=== PATIENT | male | born 1990 | race Caucasian/White ===

== ENCOUNTER 2016-10-08 17:26 | Inpatient (IN) | payer MEDICARE, MEDICAID ==
[2016-10-08] MEDS ORDERED: DIPH,PERTUS(ACELL)TETVAC-LF 0.5 ML VIAL IM ONE (17:29)
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
[2016-10-08 22:45] LABS: Appearance,Urine Clear (Clear); Bilirubin,Urine Negative (Negative); Glucose,Urine (UA) Negative (Negative); Ketones,Urine Negative (Negative); Leukocyte Esterase,Urine Negative (Negative); Nitrite,Urine Negative (Negative); Protein,Urine Negative (Negative); Specific Gravity,Urine 1.002 (1.001-1.035); UA Billing (MACRO vs. MICRO) CHEM; Urobilinogen,Urine <2.0 mg/dL (<2.0)
[2016-10-08] MEDS ORDERED: MIRTAZAPINE 15 MG TAB PO STA (22:54)
[2016-10-08] MEDS ORDERED: lamoTRIgine 100 MG TAB PO STA (22:54)
[2016-10-08] MEDS ORDERED: LACOSAMIDE 50 MG TABLET PO STA (22:55)
[2016-10-08] MEDS ORDERED: TEMAZEPAM 15 MG CAP PO STA (22:56)
[2016-10-08] MEDS ORDERED: BENZTROPINE MESYLATE 1 MG TAB PO STA (22:57)
[2016-10-08] MEDS ORDERED: clonazePAM 1 MG TAB PO STA (22:57)
[2016-10-08 22:58] LABS: Basophils % (A) 1 %; CH 31.3; Eosinophils # (A) 0.1 k/uL (0-0.7); Eosinophils % (A) 1 %; HCT 47.5 % (39.0-53.0); HDW 2.37; HGB 15.8 gm/dL (13.0-17.5); Luc # (Auto) 0.28; Luc % (Auto) 3; Lymphocytes # (A) 2.3 k/uL (1.0-4.8); Lymphocytes % (A) 27 %; MCH 30.7 pg (25.0-35.0); MCHC 33.2 g/dL (31.0-37.0); MCV 92.4 fL (80.0-100.0); Mean Platelet Volume 7.1; Monocytes # (A) 0.7 k/uL (0-1.0); Monocytes % (A) 8 %; Neutrophils # (A) 5.1 k/uL (1.3-7.7); Neutrophils % (A) 60 %; RBC 5.14 m/uL (4.30-5.90); RDW 13.9 % (11.5-15.5); WBC 8.6 k/uL (3.8-10.6); WBC (Perox) 8.19
[2016-10-08 23:12] LABS: ALT 41 U/L (21-72); AST 28 U/L (17-59); Alkaline Phosphatase 91 U/L (38-126); Anion Gap 11 mmol/L; Blood Urea Nitrogen 8 mg/dL (9-20); Carbon Dioxide 22 mmol/L (22-30); Chloride 111 mmol/L (98-107); Glucose 106 mg/dL (74-99); Non-African American GFR(MDRD) >60 (>60 ml/min/1.73 sqM); Potassium 4.1 mmol/L (3.5-5.1); Sodium 144 mmol/L (137-145); Total Bilirubin 0.3 mg/dL (0.2-1.3); Total Protein 6.8 g/dL (6.3-8.2)
[2016-10-09] MEDS ORDERED: TEMAZEPAM 15 MG CAP PO PRN (14:35)
[2016-10-09] MEDS ORDERED: PROPRANOLOL LA 80 MG CAP.SA.24H PO STA (14:35)
[2016-10-09] MEDS ORDERED: REXULTI 4 MG PO SCH (15:00)
[2016-10-09] MEDS ORDERED: clonazePAM 1 MG TAB PO SCH (16:00)
[2016-10-09] MEDS ORDERED: ETHOSUXIMIDE PO SCH (21:00)
[2016-10-09] MEDS ORDERED: lamoTRIgine 100 MG TAB PO SCH (21:00)
[2016-10-09] MEDS ORDERED: LACOSAMIDE 50 MG TABLET PO SCH ×2 (21:00→22:00)
[2016-10-09] MEDS ORDERED: BENZTROPINE MESYLATE 1 MG TAB PO SCH (21:00)
[2016-10-09] MEDS ORDERED: MIRTAZAPINE 15 MG TAB PO SCH (21:00)
[2016-10-09] MEDS ORDERED: ZIPRASIDONE 20 MG VIAL IM PRN (21:08)
[2016-10-09] MEDS ORDERED: MAGNESIUM HYDROXIDE 2,400 MG/10 ML CUP PO PRN (21:08)
[2016-10-09] MEDS ORDERED: MAG HYDROX/AL HYDROX/SIMETH 30 ML CUP PO PRN (21:08)
[2016-10-09] MEDS ORDERED: ACETAMINOPHEN TAB 325 MG TAB PO PRN (21:08)
[2016-10-09] MEDS ORDERED: IBUPROFEN 800 MG TAB PO PRN (21:19)
[2016-10-09] MEDS ORDERED: TEMAZEPAM 15 MG CAP PO SCH (22:00)
[2016-10-09] MEDS: BENZTROPINE MESYLATE 1 MG TAB PO SCH (22:02)
[2016-10-09] MEDS: ZARONTIN PO SCH (22:02)
[2016-10-09] MEDS: lamoTRIgine 100 MG TAB PO SCH (22:03)
[2016-10-09] MEDS: MIRTAZAPINE 15 MG TAB PO SCH (22:03)
[2016-10-09] MEDS: NICOTINE 14MG/24HR PATCH TRANSDERM SCH (22:05)
[2016-10-09 22:50] VITALS: BMI 23.1
[2016-10-10] MEDS: clonazePAM 1 MG TAB PO SCH ×3 (06:19→18:16)
[2016-10-10 08:27] LABS: Basophils # (A) 0.1 k/uL (0-0.2); Basophils % (A) 1 %; CHCM 33.5; Eosinophils # (A) 0.1 k/uL (0-0.7); Eosinophils % (A) 2 %; HGB 15.9 gm/dL (13.0-17.5); Luc # (Auto) 0.25; Luc % (Auto) 4; Lymphocytes # (A) 1.7 k/uL (1.0-4.8); Lymphocytes % (A) 25 %; MCH 30.3 pg (25.0-35.0); MCHC 32.5 g/dL (31.0-37.0); Mean Platelet Volume 7.2; Monocytes # (A) 0.6 k/uL (0-1.0); Monocytes % (A) 9 %; Neutrophils % (A) 59 %; RBC 5.26 m/uL (4.30-5.90); RDW 13.8 % (11.5-15.5); WBC 6.8 k/uL (3.8-10.6); WBC (Perox) 6.67
[2016-10-10] MEDS ORDERED: PROPRANOLOL LA 80 MG CAP.SA.24H PO SCH ×2 (09:00)
[2016-10-10 09:22] LABS: Anion Gap 10 mmol/L; Blood Urea Nitrogen 12 mg/dL (9-20); Calcium 9.7 mg/dL (8.4-10.2); Carbon Dioxide 23 mmol/L (22-30); Chloride 109 mmol/L (98-107); Glucose 96 mg/dL (74-99); Non-African American GFR(MDRD) >60 (>60 ml/min/1.73 sqM); Potassium 4.1 mmol/L (3.5-5.1); Sodium 142 mmol/L (137-145)
[2016-10-10] MEDS: lamoTRIgine 100 MG TAB PO SCH ×2 (09:22→21:25)
[2016-10-10] MEDS: VIMPAT 100 MG PO SCH ×2 (09:23→21:26)
[2016-10-10] MEDS: ZARONTIN PO SCH ×2 (09:23→21:27)
[2016-10-10] MEDS: Brexpiprazole [Rexulti] 4 MG PO SCH (09:25)
[2016-10-10] MEDS: BENZTROPINE MESYLATE 1 MG TAB PO SCH ×2 (09:25→21:25)
[2016-10-10] MEDS: NICOTINE 14MG/24HR PATCH TRANSDERM SCH (09:25)
[2016-10-10] MEDS ORDERED: REXULTI 4 MG PO SCH (10:00)
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
[2016-10-10] MEDS ORDERED: OLANZapine 10 MG TAB PO STA (17:53)
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
[2016-10-10] MEDS ORDERED: PROPRANOLOL 20 MG TAB PO SCH (21:00)
[2016-10-10] MEDS: MIRTAZAPINE 15 MG TAB PO SCH (21:25)
[2016-10-10] MEDS: OLANZapine 10 MG TAB PO SCH (21:26)
[2016-10-11] MEDS: clonazePAM 1 MG TAB PO SCH ×3 (06:30→17:10)
[2016-10-11] MEDS: ZARONTIN PO SCH ×2 (09:11→20:13)
[2016-10-11] MEDS: lamoTRIgine 100 MG TAB PO SCH ×2 (09:12→20:14)
[2016-10-11] MEDS: PROPRANOLOL 20 MG TAB PO SCH ×2 (09:12→20:14)
[2016-10-11] MEDS: VIMPAT 100 MG PO SCH ×2 (09:12→20:26)
[2016-10-11] MEDS: OLANZapine 10 MG TAB PO SCH ×2 (09:13→20:15)
[2016-10-11] MEDS: BENZTROPINE MESYLATE 1 MG TAB PO SCH ×2 (09:13→20:13)
[2016-10-11] MEDS: Brexpiprazole [Rexulti] 4 MG PO SCH (09:14)
[2016-10-11] MEDS: NICOTINE 14MG/24HR PATCH TRANSDERM SCH (09:15)
[2016-10-11] MEDS: MIRTAZAPINE 15 MG TAB PO SCH (20:26)
[2016-10-12] MEDS: clonazePAM 1 MG TAB PO SCH ×3 (06:24→17:29)
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
[2016-10-12] MEDS: OLANZapine 10 MG TAB PO SCH ×2 (09:48→20:48)
[2016-10-12] MEDS: BENZTROPINE MESYLATE 1 MG TAB PO SCH ×2 (09:48→20:47)
[2016-10-12] MEDS: lamoTRIgine 100 MG TAB PO SCH ×2 (09:48→20:47)
[2016-10-12] MEDS: ZARONTIN PO SCH ×2 (09:49→20:48)
[2016-10-12] MEDS: Brexpiprazole [Rexulti] 4 MG PO SCH (09:49)
[2016-10-12] MEDS: PROPRANOLOL 20 MG TAB PO SCH ×2 (09:50→20:48)
[2016-10-12] MEDS: VIMPAT 100 MG PO SCH ×2 (10:41→21:16)
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
[2016-10-12] MEDS: MIRTAZAPINE 15 MG TAB PO SCH (20:48)
[2016-10-13] MEDS: clonazePAM 1 MG TAB PO SCH ×3 (06:20→17:34)
[2016-10-13] MEDS: lamoTRIgine 100 MG TAB PO SCH ×2 (08:44→20:01)
[2016-10-13] MEDS: BENZTROPINE MESYLATE 1 MG TAB PO SCH ×2 (08:44→20:01)
[2016-10-13] MEDS: OLANZapine 10 MG TAB PO SCH ×2 (08:44→20:01)
[2016-10-13] MEDS: VIMPAT 100 MG PO SCH ×2 (08:44→20:02)
[2016-10-13] MEDS: PROPRANOLOL 20 MG TAB PO SCH (08:44)
[2016-10-13] MEDS: ZARONTIN PO SCH ×2 (08:45→20:02)
[2016-10-13] MEDS: Brexpiprazole [Rexulti] 4 MG PO SCH (08:45)
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
[2016-10-13] MEDS: MIRTAZAPINE 15 MG TAB PO SCH (20:01)
[2016-10-14] MEDS: clonazePAM 1 MG TAB PO SCH ×2 (06:09→11:36)
[2016-10-14 06:22] VITALS: TEMP 97.9
[2016-10-14] MEDS: ZARONTIN PO SCH (08:39)
[2016-10-14] MEDS: BENZTROPINE MESYLATE 1 MG TAB PO SCH (08:39)
[2016-10-14] MEDS: lamoTRIgine 100 MG TAB PO SCH (08:40)
[2016-10-14] MEDS: Brexpiprazole [Rexulti] 4 MG PO SCH (08:41)
[2016-10-14] MEDS: OLANZapine 10 MG TAB PO SCH (08:41)
[2016-10-14] MEDS: PROPRANOLOL 20 MG TAB PO SCH ×2 (08:42→08:47)
[2016-10-14] MEDS ORDERED: HALOPERIDOL DECANOATE 100 MG/ML 1 ML VIAL IM SCH (09:00)
[2016-10-14] MEDS: VIMPAT 100 MG PO SCH (10:01)
[2016-10-14 11:10] VITALS: BP 145/84; PULSE 96; RESP 16
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
[2016-10-19] MEDS ORDERED: HALOPERIDOL DECANOATE 100 MG/ML 1 ML VIAL IM SCH (12:00)
== END 2016-10-14 14:41 | DRG 885 ==
LOC: EC 17:26 → 3MHU 10-09 20:12
PROVIDERS: ADMIT Psychiatry & Neurology Psychiatry; ATTEND Psychiatry & Neurology Psychiatry
DX: F25.0 Schizoaffective disorder, bipolar type (principal); F70 Mild intellectual disabilities; R45.851 Suicidal ideations; F84.5 Asperger's syndrome; F17.200 Nicotine dependence, unspecified, uncomplicated; F63.81 Intermittent explosive disorder; F81.9 Developmental disorder of scholastic skills, unspecified; G40.909 Epilepsy, unspecified, not intractable, without status epilepticus; S61.512A Laceration without foreign body of left wrist, initial encounter; Z79.899 Other long term (current) drug therapy; X78.1XXA Intentional self-harm by knife, initial encounter
CPT/HCPCS: 12002; 36415; 80048; 80053; 80175; 80306; 81003; 82075; 84443; 85025; 90471; 99285

== ENCOUNTER → 2017-08-07 | Outpatient (CLI) | payer MEDICARE, OTHER ==
--- NOTE | 2017-08-07 10:41 | MR ---
EXAMINATION TYPE: MR brain wo con DATE OF EXAM: 08/07/2017 COMPARISON: MRI brain May 28, 2015 HISTORY: Seizures TECHNIQUE: Multiplanar, multisequence imaging of the brain and brainstem is performed without IV cont rast. FINDINGS: Diffusion weighted images demonstrate no evidence of a recent infarct or other diffusion abnormality. There is no extraaxial fluid collection or significant white matter signal abnormality. The ventricu lar system and cisternal spaces are normal in size and appearance. The brain volume is age appropria te. Midline structures demonstrate normal morphology. The craniocervical junction appears within normal limits. Normal vascular flow voids are present. The visualized sinuses are clear and the globes are i ntact. IMPRESSION: No significant new or acute finding is present to account for patient's symptoms.
== END ==
LOC: RADMRIMAIN 09:46
PROVIDERS: ATTEND Psychiatry & Neurology Neurology
DX: G40.409 Other generalized epilepsy and epileptic syndromes, not intractable, without status epilepticus (principal); Z88.8 Allergy status to other drugs, medicaments and biological substances
CPT/HCPCS: 70551

== ENCOUNTER 2017-10-09 18:52 | Inpatient (IN) | payer MEDICARE, MEDICAID ==
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
[2017-10-09 20:01] LABS: Amphetamine Screen,Urine Not Detected (NotDetected); Barbiturate Screen,Urine Detected (NotDetected); Benzodiazepines Screen,Urine Not Detected (NotDetected); Cocaine Screen,Urine Not Detected (NotDetected); Methadone Screen, Urine Not Detected (NotDetected); Opiate Screen,Urine Not Detected (NotDetected); Oxycodone Screen, Urine Not Detected (NotDetected); Phencyclidine Screen,Urine Not Detected (NotDetected); Tricyclic Antidepressant,Urine Detected (NotDetected); Urn Cannabinoid Scrn Not Detected (NotDetected)
[2017-10-09] MEDS ORDERED: MAGNESIUM HYDROXIDE 2,400 MG/10 ML CUP PO PRN (22:05)
[2017-10-09] MEDS ORDERED: MAG HYDROX/AL HYDROX/SIMETH 30 ML CUP PO PRN (22:05)
[2017-10-09] MEDS ORDERED: HALOPERIDOL LACTATE 5 MG/ML 1 ML VIAL IM PRN (22:17)
[2017-10-10] MEDS: OLANZapine 10 MG TAB PO SCH ×2 (09:17→20:03)
[2017-10-10] MEDS: LACOSAMIDE 50 MG TABLET PO SCH ×2 (09:17→20:13)
[2017-10-10] MEDS: cloNIDine HCL 0.1 MG TAB PO SCH ×2 (09:17→20:03)
[2017-10-10] MEDS: BENZTROPINE MESYLATE 1 MG TAB PO SCH (09:17)
[2017-10-10] MEDS: lamoTRIgine 100 MG TAB PO SCH ×2 (09:17→20:03)
[2017-10-10] MEDS: NICOTINE 14MG/24HR PATCH TRANSDERM SCH (09:23)
[2017-10-10 09:39] LABS: Basophils % (A) 1 %; Eosinophils % (A) 0 %; HCT 49.3 % (39.0-53.0); HGB 16.6 gm/dL (13.0-17.5); Lymphocytes # (A) 1.6 k/uL (1.0-4.8); Lymphocytes % (A) 26 %; MCH 30.5 pg (25.0-35.0); MCHC 33.8 g/dL (31.0-37.0); MCV 90.2 fL (80.0-100.0); Mean Platelet Volume 7.1; Monocytes # (A) 0.6 k/uL (0-1.0); Monocytes % (A) 9 %; Neutrophils # (A) 3.9 k/uL (1.3-7.7); Neutrophils % (A) 62 %; Platelet Count 249 k/uL (150-450); RBC 5.46 m/uL (4.30-5.90); RDW 13.5 % (11.5-15.5); WBC 6.2 k/uL (3.8-10.6)
[2017-10-10 09:41] LABS: ALT 28 U/L (21-72); AST 20 U/L (17-59); Albumin 4.5 g/dL (3.5-5.0); Alkaline Phosphatase 133 U/L (38-126); Anion Gap 10 mmol/L; Blood Urea Nitrogen 10 mg/dL (9-20); Calcium 10.2 mg/dL (8.4-10.2); Carbon Dioxide 25 mmol/L (22-30); Chloride 108 mmol/L (98-107); Cholesterol 182 mg/dL (<200); Glucose 140 mg/dL (74-99); HDL Cholesterol 40 mg/dL (40-60); LDL Cholesterol,Calculated 115 mg/dL (0-99); Potassium 4.5 mmol/L (3.5-5.1); Sodium 143 mmol/L (137-145); Total Bilirubin 0.4 mg/dL (0.2-1.3); Triglycerides 136 mg/dL (<150)
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
--- NOTE | 2017-10-10 14:37 | CONS ---
CONSULTATION DATE OF SERVICE: 10/10/2017 This 26-year-old gentleman admitted for psychiatric evaluation. is currently not willing to be examined. The patient appears to be agitated at this time. Please call us when the patient is more cooperative for an exam. RODDY / YAZANN: [id number] /
[2017-10-10 17:21] LABS: Hemoglobin A1C 5.4 % (4.0-6.0)
[2017-10-10] MEDS: MIRTAZAPINE 15 MG TAB PO SCH (20:03)
[2017-10-10] MEDS: IMIPRAMINE 25 MG TAB PO SCH (20:03)
[2017-10-10] MEDS ORDERED: ETHOSUXIMIDE 250 MG PO SCH (21:00)
[2017-10-10 21:47] LABS: T4, Free (Free Thyroxine) 1.35 ng/dL (0.78-2.19)
[2017-10-11] MEDS: lamoTRIgine 100 MG TAB PO SCH ×2 (10:44→20:18)
[2017-10-11] MEDS: BENZTROPINE MESYLATE 1 MG TAB PO SCH (10:44)
[2017-10-11] MEDS: NICOTINE 14MG/24HR PATCH TRANSDERM SCH (10:44)
[2017-10-11] MEDS: LACOSAMIDE 50 MG TABLET PO SCH ×2 (10:44→20:18)
[2017-10-11] MEDS: cloNIDine HCL 0.1 MG TAB PO SCH ×2 (10:44→20:18)
[2017-10-11] MEDS: OLANZapine 10 MG TAB PO SCH (10:44)
--- NOTE | 2017-10-11 11:05 | P.PN ---
Progress Note - Text Interval history: The patient is found in his room. He reluctantly follows me to an interview room. He states he's not doing good today. He is concerned that he is going to go to shelter for destruction of property and his this would be a violation of his mental health court agreement. I was able to reach his outpatient psychiatrist Dr. Coppola. We discussed the presenting circumstances and medication management options. It appears he has not been tried on claws role in the past and we agreed that we would trial that in place of Zyprexa. It seems that events like this are often triggered by phone calls with siblings. Reportedly those conversations don't go well and often are confrontational. The patient has had a baseline CBC with differential the white blood count and absolute neutrophil number are in the acceptable range to initiate Clozaril. Mental status exam: The patient is alert he is partially cooperative. He provides brief responses to some questions and then does not answer others. He did terminate the session early out of frustration. He indicated that he misses his mother and he became acutely tearful. He reports a depressed mood. He did not tolerate questions regarding suicidal or homicidal ideation. He was mildly agitated in leaving the room. Insight and judgment are impaired. There is a history of chronic intellectual disability. He is dressed in the same clothing is yesterday and has a disheveled appearance. Eye contact was poor. He had no spontaneous speech. Plan: The patient seems to be struggling with aggressive responses to stressors. Reportedly his last outburst was approximately 3 months ago. I conferred with his outpatient psychiatrist and we agreed to try utilizing Clozaril in place of Zyprexa as it may be more effective for reducing aggressive impulses. We will initiated slowly 25 mg at bedtime Zyprexa will be reduced. We will monitor him for safety and encourage his participation in the milieu. Reality orientation will be provided when possible.
[2017-10-11] MEDS: ETHOSUXIMIDE PO SCH (20:17)
[2017-10-11] MEDS: MIRTAZAPINE 15 MG TAB PO SCH (20:18)
[2017-10-11] MEDS: IMIPRAMINE 25 MG TAB PO SCH (20:18)
[2017-10-11] MEDS: OLANZapine 5 MG TAB PO SCH (20:18)
[2017-10-11] MEDS: cloZAPine 25 MG TAB PO SCH (20:18)
--- NOTE | 2017-10-12 08:45 | P.PN ---
Progress Note - Text Interval history: The patient is found in his room he follows me to an interview room. He indicates his mood is better. He does still have some concern that his actions may cause him to go to correction but is awaiting input from mental health Court. He states that he did eat breakfast this morning he attended 2 groups yesterday per his report. We discussed the medication changes that we are making he has no questions or concerns. He has been in contact with his mother via phone and he finds those interactions supportive. Mental status exam: The patient is alert he has a disheveled appearance he's been wearing the same clothing throughout the hospitalization. Eye contact is improved. He reports his mood is better today. He states he feels safe here in the hospital. Affect is brighter than yesterday. He demonstrates some appropriate smiling with use of humor. He is endorsing no acute suicidal or homicidal ideation but does indicate that the courts decision would impact his mood. He is endorsing no paranoid or persecutory thoughts currently. Thought process for the most part is linear he demonstrates no tangential thinking loose associations or flight of ideas. Insight and judgment chronically limited he does have a chronic intellectual disability. Chronic impediment speech. Plan: The patient will continue on his current medications we will discontinue the Zyprexa soon. We will consider titrating the claws role further as well. Vital signs reviewed. He is encouraged to fully participate in the milieu. We will continue monitoring him for safety.
[2017-10-12] MEDS: lamoTRIgine 100 MG TAB PO SCH ×2 (09:09→20:29)
[2017-10-12] MEDS: OLANZapine 5 MG TAB PO SCH ×2 (09:09→20:29)
[2017-10-12] MEDS: BENZTROPINE MESYLATE 1 MG TAB PO SCH (09:09)
[2017-10-12] MEDS: LACOSAMIDE 50 MG TABLET PO SCH ×2 (09:09→20:29)
[2017-10-12] MEDS: ETHOSUXIMIDE PO SCH ×2 (09:09→20:33)
[2017-10-12] MEDS: cloNIDine HCL 0.1 MG TAB PO SCH ×2 (09:09→20:28)
[2017-10-12] MEDS: NICOTINE 14MG/24HR PATCH TRANSDERM SCH (09:10)
[2017-10-12 13:12] LABS: Appearance,Urine Clear (Clear); Bilirubin,Urine Negative (Negative); Blood,Urine Negative (Negative); Color,Urine Light Yellow; Glucose,Urine (UA) Negative (Negative); Ketones,Urine Negative (Negative); Leukocyte Esterase,Urine Negative (Negative); Nitrite,Urine Negative (Negative); PH, Urine 7.5 (5.0-8.0); Protein,Urine Negative (Negative); Specific Gravity,Urine 1.007 (1.001-1.035); Urobilinogen,Urine <2.0 mg/dL (<2.0)
[2017-10-12] MEDS: cloZAPine 25 MG TAB PO SCH (20:28)
[2017-10-12] MEDS: MIRTAZAPINE 15 MG TAB PO SCH (20:29)
[2017-10-12] MEDS: IMIPRAMINE 25 MG TAB PO SCH (20:29)
--- NOTE | 2017-10-13 09:20 | P.PN ---
Progress Note - Text Interval history: The patient is found in his room he follows me to an interview room. He reports being upset with his mother sister and other family members. He states his sister and mother have been lying about what he said prior to this admission. We attempted to discuss strategies he could've employed rather than acting out violently. He has been attending some groups selectively. Appetite stable. He is sleeping at night. He has been compliant with medication. Mental status exam: The patient is alert he has a disheveled appearance he is wearing different clothing than yesterday. Eye contact is poor. He hasn't irritable and frustrated affect. He is reporting no suicidal or homicidal ideation. He is endorsing no auditory or visual hallucinations. He does have ongoing intellectual disability. His insight into his violent acts is impaired. He does not make much effort during our discussion to think of alternatives to violence when he is upset. He demonstrates no abnormal involuntary movements. He demonstrates no verbal or physical aggressiveness directed at me. Today he is employing all or none thinking as he states he doesn't want anything to do with his brother sister or mother. Historically he considers his mother his primary support. Plan: The patient will continue on his current medication we will titrate the Clozaril to 50 mg at bedtime we will discontinue the Zyprexa. Continue other psychotropic medications as written. We will continue to monitor him for safety and encourage his participation in the milieu. He does have mental health court scheduled for Monday he reports we may be of the discharge and prior to that date. Vital signs reviewed.
[2017-10-13] MEDS: ETHOSUXIMIDE PO SCH ×2 (09:28→20:17)
[2017-10-13] MEDS: LACOSAMIDE 50 MG TABLET PO SCH ×2 (09:29→20:17)
[2017-10-13] MEDS: cloNIDine HCL 0.1 MG TAB PO SCH ×2 (09:29→20:18)
[2017-10-13] MEDS: BENZTROPINE MESYLATE 1 MG TAB PO SCH (09:30)
[2017-10-13] MEDS: lamoTRIgine 100 MG TAB PO SCH ×2 (09:30→20:18)
[2017-10-13] MEDS: OLANZapine 5 MG TAB PO SCH (09:43)
[2017-10-13] MEDS: ACETAMINOPHEN TAB 325 MG TAB PO PRN (17:28)
--- NOTE | 2017-10-13 18:08 | XR ---
EXAMINATION TYPE: XR chest 1V portable DATE OF EXAM: 10/13/2017 COMPARISON: 10/23/2015 HISTORY: Short of breath TECHNIQUE: Single frontal view of the chest is obtained. FINDINGS: Heart and mediastinum are normal. Lungs are clear. Diaphragm is normal. Bony thorax appear s normal. IMPRESSION: Normal chest. No change.
[2017-10-13] MEDS: IMIPRAMINE 25 MG TAB PO SCH (20:17)
[2017-10-13] MEDS: MIRTAZAPINE 15 MG TAB PO SCH (20:17)
[2017-10-13] MEDS: cloZAPine 25 MG TAB PO SCH (20:18)
--- NOTE | 2017-10-14 08:17 | P.CRDCN ---
History of Present Illness Consult date: 10/14/17 Chief complaint: Chest pain History of present illness: This is a pleasant 26-year-old gentleman who was admitted to the psych unit with suicidal ideation and schizoaffective disorder. We get involved in the care of the patient because of chest discomfort. The patient yesterday was experiencing chest discomfort, in the mid of the chest, as a sharp kind of discomfort, without any radiation to the arm or neck or shoulders and without any associated symptoms. He states that the chest discomfort was worse once he took a deep breath. Currently the patient is pain- free. The cardiac enzymes were checked and came in to be unremarkable. The EKG showed sinus rhythm without any significant ST or T-wave abnormalities. The patient stated that he does have hypertension. He does have a family history of heart disease with his father with does have a pacemaker. He is also a smoker. Past Medical History Past Medical History: Neurologic Disorder, Seizure Disorder Additional Past Medical History / Comment(s): Developemental Disability, asperbergers,delayed speech,severe emotional impairment,explosive anger disorder.schizoaffective disorder History of Any Multi-Drug Resistant Organisms: None Reported Past Surgical History: No Surgical Hx Reported Past Anesthesia/Blood Transfusion Reactions: No Reported Reaction Past Psychological History: Schizoaffective Disorder, Schizophrenia Smoking Status: Current every day smoker Past Alcohol Use History: None Reported Past Drug Use History: None Reported Medications and Allergies Home Medications Medication Instructions Recorded Confirmed Type Haloperidol Decanoate [Haldol D] 250 mg IM Q28D #1 vial 03/16/17 10/09/17 Rx Lacosamide [Vimpat] 100 mg PO BID #60 tablet 03/16/17 10/09/17 Rx Mirtazapine [Remeron] 60 mg PO HS #60 tablet 03/16/17 10/09/17 Rx OLANZapine [ZyPREXA] 10 mg PO BID #60 tab 03/16/17 10/09/17 Rx lamoTRIgine [LaMICtal] 300 mg PO BID #120 tablet 03/16/17 10/09/17 Rx Benztropine Mesylate [Cogentin] 1 mg PO DAILY 10/09/17 10/09/17 History Ethosuximide [Zarontin] 750 mg PO BID 10/09/17 10/11/17 History Ibuprofen [Motrin] 800 mg PO TID PRN 10/09/17 10/09/17 History Imipramine HCl 50 mg PO HS 10/09/17 10/09/17 History Loratadine 10 mg PO DAILY 10/09/17 10/09/17 History Propranolol HCl 80 mg PO BID 10/09/17 10/09/17 History cloNIDine HCL [Catapres] 0.1 mg PO BID 10/09/17 10/09/17 History Allergies Allergy/AdvReac Type Severity Reaction Status Date / Time divalproex sodium Allergy Severe Unknown Verified 10/09/17 19:10 [From Depakote] chocolate flavor AdvReac Rash/Hives Verified 10/09/17 19:10 Physical Exam Vitals: Vital Signs Temp Pulse Resp BP BP Pulse Ox 10/14/17 07:02 98.0 F 73 14 114/57 10/13/17 20:30 131/89 10/13/17 16:06 76 16 118/55 98 10/13/17 09:33 140 H 18 109/67 - Constitutional General appearance: no acute distress - Respiratory Respiratory: bilateral: CTA - Cardiovascular Rhythm: regular Heart sounds: normal: S1, S2 Results 10/10/17 09:04 10/10/17 09:04 Cardiac Enzymes 10/13/17 10/14/17 Range/Units 18:12 00:09 Troponin I <0.012 <0.012 (0.000-0.034) ng/mL Current Medications Generic Name Dose Route Start Last Admin Trade Name Freq PRN Reason Stop Dose Admin Acetaminophen 650 mg 10/09/17 22:05 10/13/17 17:28 Tylenol Tab PO 650 mg Q4HR PRN Administration Pain/Discomfort Al Hydroxide/Mg Hydroxide 30 ml 10/09/17 22:05 Maalox PO Q4HR PRN GI Upset Benztropine Mesylate 1 mg 10/10/17 09:00 10/13/17 09:30 Cogentin PO 1 mg DAILY SHIMA Administration Clonidine 0.1 mg 10/10/17 09:00 10/13/17 20:18 Catapres PO 0.1 mg BID SHIMA Administration Clozapine 50 mg 10/13/17 21:00 10/13/17 20:18 Clozaril PO 10/18/17 21:01 50 mg HS SHIMA Administration Haloperidol Lactate 5 mg 10/09/17 22:17 Haldol IM BID PRN Agitation or Acute Psychosis Imipramine HCl 50 mg 10/10/17 21:00 10/13/17 20:17 Tofranil PO 50 mg HS SHIMA Administration Lacosamide 100 mg 10/10/17 09:00 10/13/17 20:17 Vimpat PO 100 mg BID SHIMA Administration Lamotrigine 300 mg 10/10/17 09:00 10/13/17 20:18 Lamictal PO 300 mg BID SHIMA Administration Magnesium Hydroxide 2,400 mg 10/09/17 22:05 Milk Of Magnesia PO DAILY PRN Constipation Mirtazapine 60 mg 10/10/17 21:00 10/13/17 20:17 Remeron PO 60 mg HS SHIMA Administration Non-Formulary Medication 750 mg 10/11/17 21:00 10/13/17 20:17 Ethosuximide [Zarontin] PO 750 mg BID SHIMA Administration 10/10/17 09:04 10/10/17 09:04 Assessment and Plan Assessment: Assessment #1 atypical/pleuritic chest discomfort Plan #1 acute coronary syndrome was ruled out #2 I will obtain an echocardiogram was Doppler #3 d-dimer to rule out a PE Thank you for allowing us participate in his care
[2017-10-14] MEDS: BENZTROPINE MESYLATE 1 MG TAB PO SCH (08:37)
[2017-10-14] MEDS: LACOSAMIDE 50 MG TABLET PO SCH ×2 (08:37→20:03)
[2017-10-14] MEDS: ETHOSUXIMIDE PO SCH ×2 (08:38→20:02)
[2017-10-14] MEDS: lamoTRIgine 100 MG TAB PO SCH ×2 (08:38→20:03)
[2017-10-14] MEDS: cloNIDine HCL 0.1 MG TAB PO SCH ×2 (08:38→20:03)
--- NOTE | 2017-10-14 13:27 | ECHOF ---
Referral Reason: MEASUREMENTS -------- HEIGHT: 185.4 cm WEIGHT: 87.1 kg BP: IVSd: 1.1 cm (0.6 - 1.1) LVIDd: 4.5 cm (3.9 - 5.3) LVPWd: 1.3 cm (0.6 - 1.1) IVSs: 1.1 cm LVIDs: 2.9 cm LVPWs: 1.7 cm Ao Diam: 3.1 cm (2.0 - 3.7) AV Cusp: 2.1 cm (1.5 - 2.6) LA Diam: 3.8 cm (2.7 - 3.8) MV EXCURSION: 25.916 mm (> 18.000) MV EF SLOPE: 178 mm/s (70 - 150) EPSS: 0.4 cm MV E Michi: 0.93 m/s MV DecT: 151 ms MV A Michi: 0.50 m/s MV E/A Ratio: 1.88 RAP: 5.00 mmHg RVSP: 14.63 mmHg FINDINGS -------- Sinus rhythm. This was a technically good study. The left ventricular size is normal. Left ventricular wall thickness is normal. Overall left vent ricular systolic function is normal with, an EF between 55 - 60 %. The right ventricle is normal in size. The left atrium is normal in size. The right atrium is normal in size. The aortic valve is trileaflet, and appears structurally normal. No aortic stenosis or regurgitation. The mitral valve leaflets are mildly thickened. Mild mitral annular calcification present. There is trace mitral regurgitation. Trace tricuspid regurgitation present. The right ventricular systolic pressure, as measured by Dopp ler, is 14.63mmHg. Pulmonic valve appears structurally normal. The aortic root, ascending aorta and aortic arch are normal. The pericardium is normal. CONCLUSIONS -------- 1. Sinus rhythm. 2. This was a technically good study. 3. The left ventricular size is normal. 4. Left ventricular wall thickness is normal. 5. Overall left ventricular systolic function is normal with, an EF between 55 - 60 %. 6. The right ventricle is normal in size. 7. The left atrium is normal in size. 8. The right atrium is normal in size. 9. The aortic valve is trileaflet, and appears structurally normal. No aortic stenosis or regurgitati on. 10. The mitral valve leaflets are mildly thickened. 11. Mild mitral annular calcification present. 12. There is trace mitral regurgitation. 13. Trace tricuspid regurgitation present. 14. The right ventricular systolic pressure, as measured by Doppler, is 14.63mmHg. 15. Pulmonic valve appears structurally normal. 16. The aortic root, ascending aorta and aortic arch are normal. 17. The pericardium is normal. POLISHING WHEEL REPAIRER: Zoila Kay RDCS
--- NOTE | 2017-10-14 15:02 | P.PN ---
Progress Note - Text Progress Note Date: 10/14/17 Patient reports missing some of his groups due to feeling drowsy with his medications . He staets his current medications are working well for him. He reports he is no longer irritable. He says he is able to stay calmer. He claims he is not a violent person. He reports to have broken a window due to a mistake that happened at home. He reports he is able to ignore his visual hallucinations. He reports history of seeing phantom and talked a lot about seeing a little girl, dressed in old fashioned clothes from 1800s. He says he avoids seeing scary/ghost movies as it triggers his schizophrenia. He reports his mother wanted him to tell the treatment team that he sees things due to his schizophrenia and he knows that they are not real. He reports good sleep and appetite. He denies current symptoms of depression or vashti. 26 year old male. He is dressed casually. His hair is unkempt, other rose appears in fair hygiene. He maintains good eye contact. No abnormal movements noted. His mood is reported as happy and affect is appropriate. His speech is normal tone, increased in rate and volume. His thought process is persevarative and talked about him seeing a phantom/ ghost like things. He denies current auditory hallucinations. He denies paranoia. He is alert and oriented 4. He denies current suicidal or homicidal ideations. His insight and judgement are improving. Continue his current medications Monitor for symptoms
[2017-10-14] MEDS: IMIPRAMINE 25 MG TAB PO SCH (20:03)
[2017-10-14] MEDS: cloZAPine 25 MG TAB PO SCH (20:03)
[2017-10-14] MEDS: MIRTAZAPINE 15 MG TAB PO SCH (20:03)
[2017-10-15] MEDS: BENZTROPINE MESYLATE 1 MG TAB PO SCH (09:18)
[2017-10-15] MEDS: cloNIDine HCL 0.1 MG TAB PO SCH ×2 (09:18→20:43)
[2017-10-15] MEDS: LACOSAMIDE 50 MG TABLET PO SCH ×2 (09:19→20:43)
[2017-10-15] MEDS: ETHOSUXIMIDE PO SCH ×2 (09:19→20:44)
[2017-10-15] MEDS: lamoTRIgine 100 MG TAB PO SCH ×2 (09:20→20:43)
[2017-10-15] MEDS: ACETAMINOPHEN TAB 325 MG TAB PO PRN (16:09)
--- NOTE | 2017-10-15 16:17 | P.PN ---
Progress Note - Text Progress Note Date: 10/15/17 Patient was seen today. He reports being complaint with his medications. No side effects reported. Reports going to most of the groups. He reports good sleep and appetite. Denies symptoms of depression. Denies anger or agitation. 26 year old male, appears in fair hygiene. He maintains good eye contact. No abnormal movements noted. His mood is reported as good and affect is appropriate. His speech is normal rate tone, and volume. He denies current auditory hallucinations. He denies paranoia. He is alert and oriented 4. He denies current suicidal or homicidal ideations. His insight and judgment are improving. Continue his current medications Monitor for symptoms
[2017-10-15] MEDS: cloZAPine 25 MG TAB PO SCH (20:42)
[2017-10-15] MEDS: IMIPRAMINE 25 MG TAB PO SCH (20:43)
[2017-10-15] MEDS: MIRTAZAPINE 15 MG TAB PO SCH (20:43)
[2017-10-15 22:01] VITALS: BMI 23.9
[2017-10-16 06:48] VITALS: RESP 16; TEMP 97.5
[2017-10-16 08:17] VITALS: BP 110/66; PULSE 124
[2017-10-16] MEDS: BENZTROPINE MESYLATE 1 MG TAB PO SCH (08:17)
[2017-10-16] MEDS: LACOSAMIDE 50 MG TABLET PO SCH (08:17)
[2017-10-16] MEDS: lamoTRIgine 100 MG TAB PO SCH (08:17)
[2017-10-16] MEDS: cloNIDine HCL 0.1 MG TAB PO SCH (08:17)
[2017-10-16] MEDS: ETHOSUXIMIDE PO SCH (08:17)
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
[2017-10-16 10:17] LABS: Basophils % (A) 1 %; Eosinophils % (A) 0 %; HCT 47.8 % (39.0-53.0); HGB 16.1 gm/dL (13.0-17.5); Lymphocytes # (A) 1.4 k/uL (1.0-4.8); Lymphocytes % (A) 25 %; MCHC 33.7 g/dL (31.0-37.0); MCV 92.2 fL (80.0-100.0); Mean Platelet Volume 6.6; Monocytes # (A) 0.5 k/uL (0-1.0); Monocytes % (A) 9 %; Neutrophils # (A) 3.5 k/uL (1.3-7.7); Neutrophils % (A) 62 %; Platelet Count 202 k/uL (150-450); RBC 5.18 m/uL (4.30-5.90); RDW 13.6 % (11.5-15.5); WBC 5.7 k/uL (3.8-10.6)
== END 2017-10-16 12:09 | disposition home or self-care (01) | DRG 885 ==
LOC: EC 18:52 → 3MHU 20:28
PROVIDERS: ADMIT Psychiatry & Neurology Psychiatry; ATTEND Psychiatry & Neurology Psychiatry
DX: F25.0 Schizoaffective disorder, bipolar type (principal); G40.802 Other epilepsy, not intractable, without status epilepticus; R45.851 Suicidal ideations; F32.9 Major depressive disorder, single episode, unspecified; F84.5 Asperger's syndrome; F63.81 Intermittent explosive disorder; I10 Essential (primary) hypertension; F17.200 Nicotine dependence, unspecified, uncomplicated; R47.9 Unspecified speech disturbances; R07.81 Pleurodynia; Z88.8 Allergy status to other drugs, medicaments and biological substances; Z91.02 Food additives allergy status; Z82.49 Family history of ischemic heart disease and other diseases of the circulatory system; Z79.899 Other long term (current) drug therapy
CPT/HCPCS: 71045; 80053; 80061; 80306; 81003; 82075; 83036; 84439; 84443; 84481; 84484; 85025; 85379; 93005; 93306; 99285

== ENCOUNTER 2017-10-28 14:55 | Emergency (ER) | payer MEDICARE, MEDICAID ==
[2017-10-28 15:05] VITALS: RESP 18
[2017-10-28] MEDS ORDERED: SODIUM CHLORIDE 0.9% 1,000 ML IV STA ×2 (15:10)
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
[2017-10-28 15:38] LABS: Basophils % (A) 0 %; Eosinophils # (A) 0.2 k/uL (0-0.7); Eosinophils % (A) 3 %; HCT 44.9 % (39.0-53.0); HGB 15.7 gm/dL (13.0-17.5); Lymphocytes # (A) 1.5 k/uL (1.0-4.8); Lymphocytes % (A) 17 %; MCH 31.5 pg (25.0-35.0); MCHC 34.9 g/dL (31.0-37.0); MCV 90.3 fL (80.0-100.0); Mean Platelet Volume 7.4; Monocytes % (A) 12 %; Neutrophils # (A) 5.8 k/uL (1.3-7.7); Neutrophils % (A) 66 %; Platelet Count 200 k/uL (150-450); RBC 4.98 m/uL (4.30-5.90); RDW 13.5 % (11.5-15.5); WBC 8.7 k/uL (3.8-10.6)
[2017-10-28 15:54] LABS: ALT 30 U/L (21-72); AST 20 U/L (17-59); Alkaline Phosphatase 102 U/L (38-126); Anion Gap 8 mmol/L; Blood Urea Nitrogen 11 mg/dL (9-20); Calcium 9.3 mg/dL (8.4-10.2); Carbon Dioxide 23 mmol/L (22-30); Chloride 107 mmol/L (98-107); Glucose 123 mg/dL (74-99); Magnesium 1.8 mg/dL (1.6-2.3); Potassium 3.9 mmol/L (3.5-5.1); Sodium 138 mmol/L (137-145); Total Bilirubin 0.4 mg/dL (0.2-1.3); Total Protein 6.4 g/dL (6.3-8.2)
[2017-10-28 16:02] LABS: Creatine Kinase MB 0.6 ng/mL (0.0-2.4)
[2017-10-28 16:34] VITALS: BP 112/70; PULSE 89; TEMP 97.9
== END 2017-10-28 16:52 | disposition home or self-care (01) ==
LOC: EC 14:55
DX: G40.909 Epilepsy, unspecified, not intractable, without status epilepticus (principal); F20.9 Schizophrenia, unspecified; F17.200 Nicotine dependence, unspecified, uncomplicated; Z79.899 Other long term (current) drug therapy; Z88.8 Allergy status to other drugs, medicaments and biological substances; Z91.018 Allergy to other foods
CPT/HCPCS: 36415; 80053; 82550; 82553; 83735; 85025; 96360; 99284

== ENCOUNTER 2017-11-14 19:49 | Emergency (ER) | payer MEDICARE, OTHER ==
[2017-11-14 20:01] VITALS: RESP 18
[2017-11-14 20:52] LABS: Basophils # (A) 0.1 k/uL (0-0.2); Basophils % (A) 1 %; Eosinophils # (A) 0.7 k/uL (0-0.7); Eosinophils % (A) 8 %; HCT 41.1 % (39.0-53.0); HGB 13.7 gm/dL (13.0-17.5); Lymphocytes # (A) 1.9 k/uL (1.0-4.8); Lymphocytes % (A) 24 %; MCH 30.5 pg (25.0-35.0); MCHC 33.4 g/dL (31.0-37.0); MCV 91.3 fL (80.0-100.0); Mean Platelet Volume 7.1; Monocytes # (A) 0.6 k/uL (0-1.0); Monocytes % (A) 8 %; Neutrophils # (A) 4.3 k/uL (1.3-7.7); Neutrophils % (A) 55 %; Platelet Count 210 k/uL (150-450); RDW 13.4 % (11.5-15.5); WBC 7.8 k/uL (3.8-10.6)
[2017-11-14 21:02] LABS: ALT 28 U/L (21-72); AST 19 U/L (17-59); Albumin 3.5 g/dL (3.5-5.0); Alkaline Phosphatase 89 U/L (38-126); Anion Gap 4 mmol/L; Blood Urea Nitrogen 10 mg/dL (9-20); Calcium 8.9 mg/dL (8.4-10.2); Carbon Dioxide 26 mmol/L (22-30); Chloride 109 mmol/L (98-107); Glucose 111 mg/dL (74-99); Magnesium 1.9 mg/dL (1.6-2.3); Potassium 3.8 mmol/L (3.5-5.1); Sodium 139 mmol/L (137-145); Total Bilirubin 0.2 mg/dL (0.2-1.3); Total Protein 5.6 g/dL (6.3-8.2)
--- NOTE | 2017-11-14 21:38 | CT ---
EXAMINATION TYPE: CT brain cspine wo con DATE OF EXAM: 11/14/2017 COMPARISON: 10/23/2015 and 07/28/2013. HISTORY: Possible seizure. CT DLP: 1667 mGycm. Automated Exposure Control for Dose Reduction was Utilized. TECHNIQUE: CT scan of the head and cervical spine are performed without contrast. FINDINGS: There is no acute intracranial hemorrhage, mass effect, or midline shift identified. No suspicious extra-axial fluid collection. The ventricles and sulci are within normal limits in size. The globes are intact. Scant mucosal thickening is present within the left maxillary and ethmoid sinu ses. Remaining paranasal sinuses and mastoid air cells are well aerated. Cervical spine is visualized in its entirety from C1 through upper thoracic levels and demonstrates s atisfactory alignment without evidence of acute fracture or dislocation. Prevertebral soft tissue ap pears within normal limits. The C1-C2 articulation is unremarkable. There is minimal biapical pleur al parenchymal scarring, advanced for the patient's age. There is slight vertebral body height loss o f C6 in relation to C5 although there is no anterior wedging identified additionally there is no sign ificant prevertebral soft tissue swelling at this level therefore this is age indeterminate mild frac ture deformity of the superior endplate. Small anterior osteophyte is seen of the inferior endplate a t this level and small osteophyte is seen of the superior endplate anteriorly of C5. Additionally the re is straightening of usual cervical lordosis which can be seen in muscular sprain or spasm or relat ed to patient positioning. IMPRESSION: 1. Superior endplate vertebral body height loss without wedge deformity of the C6 vertebral body, pro gressed from the prior exam of 2013. Therefore correlation with point tenderness is recommended to ex clude acute on chronic process. MR could be performed to evaluate for bone marrow edema. No preverteb ral soft tissue swelling at this level. 2. No acute intracranial process.
[2017-11-14 22:58] VITALS: BP 118/83; PULSE 79; TEMP 98.5
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
[2017-11-16 12:23] LABS: Lamotrigine (Lamictal) 9.1 ug/mL (2.0-15.0)
== END 2017-11-14 23:53 | disposition home or self-care (01) ==
LOC: EC 19:49
DX: S06.0X0A Concussion without loss of consciousness, initial encounter (principal); R55 Syncope and collapse; F20.9 Schizophrenia, unspecified; F17.200 Nicotine dependence, unspecified, uncomplicated; Z79.899 Other long term (current) drug therapy; Z88.8 Allergy status to other drugs, medicaments and biological substances; Z91.018 Allergy to other foods; W18.00XA Striking against unspecified object with subsequent fall, initial encounter; Y92.89 Other specified places as the place of occurrence of the external cause
CPT/HCPCS: 36415; 70450; 72125; 80053; 80168; 80175; 83735; 84484; 85025; 93005; 99285

== ENCOUNTER 2018-09-12 10:54 | Emergency (ER) | payer MEDICARE, OTHER ==
[2018-09-12 11:07] VITALS: BP 126/76; PULSE 91; RESP 18; TEMP 97.5
--- NOTE | 2018-09-12 12:30 | ED ---
Wound/Laceration HPI - General Chief Complaint: Wound/Laceration Stated Complaint: Fall, head pain Time Seen by Provider: 09/12/18 12:13 Source: patient, family, RN notes reviewed, old records reviewed Mode of arrival: ambulatory Limitations: physical limitation - History of Present Illness Initial Comments: Patient is a 27 year old male, slipped and fell into the shower hitting head. Patient has abrasion over scalp, no LOC. Patient was sent from his day program due to noticing bleeding. Patient did not notice bleeding directly after it happened. - Related Data Home Medications Medication Instructions Recorded Confirmed Ethosuximide [Zarontin] 750 mg PO BID 10/09/17 07/14/18 Propranolol HCl 80 mg PO BID 10/09/17 07/14/18 SUMAtriptan SUCCINATE [Imitrex] 50 mg PO DAILY PRN 07/14/18 07/14/18 cloNIDine HCL [Catapres] 0.1 mg PO HS 07/14/18 07/14/18 cloZAPine [Clozaril] 50 mg PO HS 07/14/18 07/14/18 cloZAPine [Clozaril] 100 mg PO BID 07/14/18 07/14/18 Previous Rx's Medication Instructions Recorded Lacosamide [Vimpat] 100 mg PO BID #60 tablet 03/16/17 lamoTRIgine [LaMICtal] 300 mg PO BID #120 tablet 03/16/17 Haloperidol Decanoate [Haldol D] 250 mg IM Q28D #1 vial 10/16/17 Imipramine HCl 50 mg PO HS #30 tablet 10/16/17 Mirtazapine [Remeron] 60 mg PO HS #60 tablet 10/16/17 Allergies Allergy/AdvReac Type Severity Reaction Status Date / Time divalproex sodium Allergy Severe Unknown Verified 09/12/18 11:07 [From Depakote] chocolate flavor AdvReac Rash/Hives Verified 09/12/18 11:07 Review of Systems ROS Statement: Those systems with pertinent positive or pertinent negative responses have been documented in the HPI. ROS Other: All systems not noted in ROS Statement are negative. Past Medical History Past Medical History: Neurologic Disorder, Seizure Disorder Additional Past Medical History / Comment(s): Developemental Disability, asperbergers,delayed speech,severe emotional impairment,explosive anger disorder.schizoaffective disorder History of Any Multi-Drug Resistant Organisms: None Reported Past Surgical History: No Surgical Hx Reported Past Anesthesia/Blood Transfusion Reactions: No Reported Reaction Past Psychological History: Schizoaffective Disorder, Schizophrenia Smoking Status: Current every day smoker Past Alcohol Use History: None Reported Past Drug Use History: None Reported General Exam - General Exam Comments Initial Comments: Pleasant 27 year old male, no distress. Limitations: physical limitation Head exam: Present: atraumatic, normocephalic, normal inspection, other (2cm abrasion over scalp, dried blood noted. no open laceration to close withsuture. ) Eye exam: Present: normal appearance, PERRL, EOMI. Absent: scleral icterus, conjunctival injection, periorbital swelling ENT exam: Present: normal exam, mucous membranes moist Neck exam: Present: normal inspection. Absent: tenderness, meningismus, lymphadenopathy Respiratory exam: Present: normal lung sounds bilaterally. Absent: respiratory distress, wheezes, rales, rhonchi, stridor Cardiovascular Exam: Present: regular rate, normal rhythm, normal heart sounds. Absent: systolic murmur, diastolic murmur, rubs, gallop, clicks GI/Abdominal exam: Present: soft, normal bowel sounds. Absent: distended, tenderness, guarding, rebound, rigid Extremities exam: Present: normal inspection, full ROM, normal capillary refill. Absent: tenderness, pedal edema, joint swelling, calf tenderness Back exam: Present: normal inspection Course Vital Signs 09/12/18 11:02 Temperature 97.5 F L Pulse Rate 91 Respiratory 18 Rate Blood Pressure 126/76 O2 Sat by Pulse 99 Oximetry Medical Decision Making - Medical Decision Making 27 year old male with scalp abrasion from slip and fall in shower this morning. No LOC and patient is neurologically inctact. HE has small 2cm abrasion that is not able to be closed due to nature of abrasion. CLeaned with water and iodine and placed mupirocin ointment on. Discussed close PCP follow up. Disposition Clinical Impression: Scalp abrasion Disposition: HOME SELF-CARE Condition: Good Instructions (If sedation given, give patient instructions): Abrasion (ED) Additional Instructions: Keep area clean and dry. Wash soap and water. Apply antibiotic ointment over the area. Return to the emergency department if any alarming signs or symptoms occur. Is patient prescribed a controlled substance at d/c from ED?: No Referrals: Bazo,Charbal B, MD [Primary Care Provider] - 1-2 days Time of Disposition: 12:30
== END 2018-09-12 12:50 | disposition home or self-care (01) ==
LOC: EC 10:54
DX: S00.01XA Abrasion of scalp, initial encounter (principal); G40.909 Epilepsy, unspecified, not intractable, without status epilepticus; F20.9 Schizophrenia, unspecified; F17.200 Nicotine dependence, unspecified, uncomplicated; Z79.899 Other long term (current) drug therapy; Z88.8 Allergy status to other drugs, medicaments and biological substances; Z91.018 Allergy to other foods; W18.2XXA Fall in (into) shower or empty bathtub, initial encounter; Y93.E1 Activity, personal bathing and showering
CPT/HCPCS: 99283

== ENCOUNTER 2018-09-22 11:45 | Inpatient (IN) | payer MEDICARE, MEDICAID ==
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
[2018-09-22] MEDS ORDERED: ZIPRASIDONE 20 MG VIAL IM STA (13:57)
[2018-09-22] MEDS ORDERED: LORazepam 2 MG/ML INJ IM STA (13:57)
[2018-09-22] MEDS ORDERED: ZIPRASIDONE 20 MG VIAL IM PRN (14:23)
[2018-09-22] MEDS ORDERED: MAG HYDROX/AL HYDROX/SIMETH 30 ML CUP PO PRN (14:23)
[2018-09-22] MEDS ORDERED: MAGNESIUM HYDROXIDE 2,400 MG/10 ML CUP PO PRN (14:23)
[2018-09-22] MEDS ORDERED: ACETAMINOPHEN TAB 325 MG TAB PO PRN (14:23)
[2018-09-22] MEDS: cloNIDine HCL 0.1 MG TAB PO SCH (20:55)
[2018-09-22] MEDS: lamoTRIgine 25 MG TAB PO SCH (20:55)
[2018-09-22] MEDS: MIRTAZAPINE 15 MG TAB PO SCH (20:56)
[2018-09-22] MEDS: PROPRANOLOL 40 MG TAB PO SCH (20:56)
[2018-09-22] MEDS: ETHOSUXIMIDE PO SCH (21:07)
[2018-09-23 08:35] LABS: Basophils # (A) 0.1 k/uL (0-0.2); Basophils % (A) 1 %; Eosinophils # (A) 0.3 k/uL (0-0.7); Eosinophils % (A) 4 %; HCT 49.5 % (39.0-53.0); HGB 16.1 gm/dL (13.0-17.5); Lymphocytes # (A) 1.9 k/uL (1.0-4.8); Lymphocytes % (A) 24 %; MCH 30.7 pg (25.0-35.0); MCHC 32.6 g/dL (31.0-37.0); Mean Platelet Volume 7.2; Monocytes # (A) 0.7 k/uL (0-1.0); Monocytes % (A) 8 %; Neutrophils # (A) 4.7 k/uL (1.3-7.7); Neutrophils % (A) 60 %; Platelet Count 217 k/uL (150-450); RBC 5.26 m/uL (4.30-5.90); RDW 14.8 % (11.5-15.5); WBC 7.9 k/uL (3.8-10.6)
[2018-09-23 08:56] LABS: ALT 31 U/L (21-72); AST 25 U/L (17-59); African American GFR (CKD) >90 (>60 ml/min/1.73 sqM); Albumin 4.5 g/dL (3.5-5.0); Alkaline Phosphatase 103 U/L (38-126); Anion Gap 6 mmol/L; Blood Urea Nitrogen 9 mg/dL (9-20); Calcium 9.9 mg/dL (8.4-10.2); Carbon Dioxide 28 mmol/L (22-30); Chloride 110 mmol/L (98-107); Cholesterol 182 mg/dL (<200); Glucose 102 mg/dL (74-99); HDL Cholesterol 44 mg/dL (40-60); LDL Cholesterol,Calculated 113 mg/dL (0-99); Potassium 4.5 mmol/L (3.5-5.1); Sodium 144 mmol/L (137-145); Total Bilirubin 0.5 mg/dL (0.2-1.3); Total Protein 7.1 g/dL (6.3-8.2); Triglycerides 127 mg/dL (<150)
[2018-09-23] MEDS: BENZTROPINE MESYLATE 1 MG TAB PO SCH (10:03)
[2018-09-23] MEDS: cloNIDine HCL 0.1 MG TAB PO SCH ×2 (10:04→20:52)
[2018-09-23] MEDS: PROPRANOLOL 40 MG TAB PO SCH ×2 (10:04→20:51)
[2018-09-23] MEDS: ETHOSUXIMIDE PO SCH ×3 (12:23→20:52)
[2018-09-23] MEDS: LORazepam 1 MG TAB PO PRN (15:42)
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
--- NOTE | 2018-09-23 17:21 | P.CONS ---
History of Present Illness - Reason for Consult Medical clearance - History of Present Illness 27-year-old male was admitted for schizoaffective disorder and acute psychotic episodes. Patient only medical complaint is on and off headaches in the left side and left temporal area which is common for him and chronic and he says it secondary to his epilepsy. Patient denied any fever chills nausea vomiting a bdominal pain Review of Systems REVIEW OF SYSTEMS: CONSTITUTIONAL: No fever, no malaise, no fatigue. HEENT: No recent visual problems or hearing problems. Denied any sore throat. CARDIOVASCULAR: No chest pain, orthopnea, PND, no palpitations, no syncope. PULMONARY: No shortness of breath, no cough, no hemoptysis. GASTROINTESTINAL: No diarrhea, no nausea, no vomiting, no abdominal pain. NEUROLOGICAL: no weakness, no numbness. HEMATOLOGICAL: Denies any bleeding or petechiae. GENITOURINARY: Denies any burning micturition, frequency, or urgency. MUSCULOSKELETAL/RHEUMATOLOGICAL: Denies any joint pain, swelling, or any muscle pain. ENDOCRINE: Denies any polyuria or polydipsia. The rest of the 14-point review of systems is negative. Past Medical History Past Medical History: Neurologic Disorder, Seizure Disorder Additional Past Medical History / Comment(s): Developemental Disability, asperbergers,delayed speech,severe emotional impairment,explosive anger disorder.schizoaffective disorder History of Any Multi-Drug Resistant Organisms: None Reported Past Surgical History: No Surgical Hx Reported Past Anesthesia/Blood Transfusion Reactions: No Reported Reaction Past Psychological History: Schizoaffective Disorder, Schizophrenia Smoking Status: Current every day smoker Past Alcohol Use History: None Reported Past Drug Use History: None Reported Medications and Allergies Home Medications Medication Instructions Recorded Confirmed Type Lacosamide [Vimpat] 100 mg PO BID #60 tablet 03/16/17 09/22/18 Rx lamoTRIgine [LaMICtal] 300 mg PO BID #120 tablet 03/16/17 09/22/18 Rx Ethosuximide [Zarontin] 750 mg PO BID 10/09/17 09/22/18 History Propranolol HCl 80 mg PO BID 10/09/17 09/22/18 History Haloperidol Decanoate [Haldol D] 250 mg IM Q28D #1 vial 10/16/17 09/22/18 Rx Imipramine HCl 50 mg PO HS #30 tablet 10/16/17 09/22/18 Rx Mirtazapine [Remeron] 60 mg PO HS #60 tablet 10/16/17 09/22/18 Rx SUMAtriptan SUCCINATE [Imitrex] 50 mg PO DAILY PRN 07/14/18 09/22/18 History cloNIDine HCL [Catapres] 0.1 mg PO HS 07/14/18 09/22/18 History cloZAPine [Clozaril] 50 mg PO HS 07/14/18 09/22/18 History cloZAPine [Clozaril] 100 mg PO BID 07/14/18 09/22/18 History Benztropine Mesylate [Cogentin] 1 mg PO DAILY 09/22/18 09/22/18 History [place] Carbonate 600 mg PO HS 09/22/18 09/22/18 History Allergies Allergy/AdvReac Type Severity Reaction Status Date / Time divalproex sodium Allergy Severe Unknown Verified 09/12/18 11:07 [From Depakote] chocolate flavor AdvReac Rash/Hives Verified 09/12/18 11:07 Physical Exam PHYSICAL EXAMINATION: GENERAL: The patient is alert and oriented x3, not in any acute distress. Well developed, well nourished. HEENT: Pupils are round and equally reacting to light. EOMI. No scleral icterus. No conjunctival pallor. Normocephalic, atraumatic. No pharyngeal erythema. No thyromegaly. CARDIOVASCULAR: S1 and S2 present. No murmurs, rubs, or gallops. PULMONARY: Chest is clear to auscultation, no wheezing or crackles. ABDOMEN: Soft, nontender, nondistended, normoactive bowel sounds. No palpable organomegaly. MUSCULOSKELETAL: No joint swelling or deformity. EXTREMITIES: No cyanosis, clubbing, or pedal edema. NEUROLOGICAL: Gross neurological examination did not reveal any focal deficits. SKIN: No rashes. Results CBC & Chem 7: 09/23/18 08:21 09/23/18 08:21 Labs: Abnormal Lab Results - Last 24 Hours (Table) 09/23/18 Range/Units 08:21 Chloride 110 H (98-107) mmol/L Glucose 102 H (74-99) mg/dL LDL Cholesterol, Calc 113 H (0-99) mg/dL Assessment and Plan Plan: -Seizure disorder: No recent seizures patient will be resumed on his home medications. -Schizoaffective disorder with acute psychotic episodes -Nicotine abuse: Counseling was provided:
[2018-09-23 18:58] LABS: Amorphous Sediment,Urine Rare /hpf; Appearance,Urine Clear (Clear); Bilirubin,Urine Negative (Negative); Blood,Urine Negative (Negative); Color,Urine Light Yellow; Glucose,Urine (UA) Negative (Negative); Hyaline Casts,Urine 4 /lpf (0-2); Ketones,Urine Negative (Negative); Leukocyte Esterase,Urine Trace (Negative); Mucus,Urine Rare /hpf; Nitrite,Urine Negative (Negative); Protein,Urine Negative (Negative); RBC,Urine <1 /hpf (0-5); Specific Gravity,Urine 1.009 (1.001-1.035); Urobilinogen,Urine <2.0 mg/dL (<2.0); WBC,Urine 18 /hpf (0-5)
[2018-09-23] MEDS: IMIPRAMINE 25 MG TAB PO SCH (20:51)
[2018-09-23] MEDS: lamoTRIgine 25 MG TAB PO SCH (20:51)
[2018-09-23] MEDS: MIRTAZAPINE 15 MG TAB PO SCH (20:51)
[2018-09-23] MEDS: LITHIUM CARBONATE 300 MG CAP PO SCH (20:52)
[2018-09-23] MEDS: cloZAPine 100 MG TAB PO SCH (20:52)
[2018-09-24] MEDS: ETHOSUXIMIDE PO SCH ×2 (08:53→21:00)
[2018-09-24] MEDS: BENZTROPINE MESYLATE 1 MG TAB PO SCH (08:54)
[2018-09-24] MEDS: cloZAPine 100 MG TAB PO SCH ×3 (08:54→21:00)
[2018-09-24] MEDS: PROPRANOLOL 40 MG TAB PO SCH ×2 (08:55→21:01)
[2018-09-24 10:26] LABS: Urine Alcohol Negative (Negative); Urine Barbiturate Negative (Negative); Urine Cocaine Negative (Negative); Urine Methadone Negative (Negative); Urine Opiates Negative (Negative); Urine Phencyclidine Negative (Negative)
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
[2018-09-24 11:57] LABS: Hemoglobin A1C 5.4 % (4.0-6.0)
[2018-09-24] MEDS ORDERED: cloZAPine 25 MG TAB PO SCH (14:00)
[2018-09-24] MEDS: LORazepam 1 MG TAB PO PRN (21:00)
[2018-09-24] MEDS: cloNIDine HCL 0.1 MG TAB PO SCH (21:00)
[2018-09-24] MEDS: MIRTAZAPINE 15 MG TAB PO SCH (21:00)
[2018-09-24] MEDS: LITHIUM CARBONATE 300 MG CAP PO SCH (21:01)
[2018-09-24] MEDS: IMIPRAMINE 25 MG TAB PO SCH (21:01)
[2018-09-24] MEDS: lamoTRIgine 25 MG TAB PO SCH (21:01)
--- NOTE | 2018-09-25 08:59 | P.PN ---
Progress Note - Text Interval history: The patient is found in his room resting in bed. He has a transportation security screener as a one-to-one. The patient was up earlier to eat breakfast and then returned to his room. He states he does not wish to speak in an office and prefers staying in his room. He indicates he does not want to be around others and prefers to be alone. He has no questions or concerns regarding his medication. He indicates his mood is tired. Mental status exam: The patient is lying in bed he only makes brief eye contact. He indicates his mood is okay. He reports no physical pain no dizziness. At this time he reports no suicidal or homicidal ideation intent or plan. He is reporting no auditory or visual hallucinations or any specific delusions. He reports feeling safe. He has no spontaneous speech she provides brief answers to questions. He is oriented to date and week as Monday he is aware he is in the hospital. He incorrectly names the month as April rather than September. He is demonstrating no verbal or physical aggressiveness. He demonstrates no involuntary repetitive movements. Insight and judgment chronically impaired. Intellectually chronically impaired. Plan: The patient will continue on his current medications. He is due for his Haldol decanoate today which we will administer. The patient is willing to receive that injection. We will monitor him for safety and encourage some participation in the milieu. We will discuss the need for one-to-one supervision further at treatment team meeting. Vital signs reviewed.
[2018-09-25] MEDS ORDERED: HALOPERIDOL DECANOATE 100 MG/ML 1 ML VIAL IM SCH ×2 (09:00)
[2018-09-25] MEDS: PROPRANOLOL 40 MG TAB PO SCH ×2 (09:17→21:00)
[2018-09-25] MEDS: ETHOSUXIMIDE PO SCH ×2 (09:18→21:08)
[2018-09-25] MEDS: BENZTROPINE MESYLATE 1 MG TAB PO SCH (09:20)
[2018-09-25] MEDS: cloZAPine 100 MG TAB PO SCH ×3 (09:20→20:59)
[2018-09-25] MEDS: IMIPRAMINE 25 MG TAB PO SCH (20:59)
[2018-09-25] MEDS: lamoTRIgine 25 MG TAB PO SCH (20:59)
[2018-09-25] MEDS: MIRTAZAPINE 15 MG TAB PO SCH (20:59)
[2018-09-25] MEDS: LITHIUM CARBONATE 300 MG CAP PO SCH (20:59)
[2018-09-25] MEDS: cloNIDine HCL 0.1 MG TAB PO SCH (21:08)
[2018-09-26] MEDS: BENZTROPINE MESYLATE 1 MG TAB PO SCH (09:15)
[2018-09-26] MEDS: cloZAPine 100 MG TAB PO SCH ×3 (09:15→20:55)
[2018-09-26] MEDS: ETHOSUXIMIDE PO SCH ×2 (09:16→20:54)
[2018-09-26] MEDS: PROPRANOLOL 40 MG TAB PO SCH ×2 (09:16→20:55)
--- NOTE | 2018-09-26 09:34 | P.PN ---
Progress Note - Text Interval history: The patient is found in the hallway he follows me to an interview room. He indicates he was headed to the dining room to eat. He reports his moods okay continues to quietly state "I want to go home" we did discontinue the one-to-one supervision yesterday following our team discussion. I will confer with staff regarding his behavior over the last 24 hours. He indicates he had no behavioral disturbance and received no injections for behavioral issues. He has no questions or concerns regarding his psychotropic medications. Social work has spoken with the patient's mother to get collateral information and to provide an update. Mental status exam: The patient is a tall male appearing his stated age she has a disheveled appearance. He is wearing a T-shirt with a sleeveless shirt over top his clothes appeared dirty. Eye contact is intermittent. He has very little spontaneous speech other than to say "I want to go home". He is reporting no suicidal or homicidal thoughts. He is reporting no auditory or visual hallucinations or any specific delusions. Insight and judgment are chronically impaired he has a known intellectual disability. He demonstrates no verbal or physical aggressiveness. He demonstrates no involuntary repetitive movements. He appears more alert today compared to yesterday. Plan: Schizoaffective disorder, intellectual disability: We will continue the medications as written. We have titrated the Clozaril dose. He'll be encouraged to participate in the milieu. We will look for consistency in his behavior as he is known to struggle with impulsive aggressiveness. Vital signs reviewed. We will discuss his progress further in treatment team meeting.
[2018-09-26 09:54] LABS: Basophils # (A) 0.1 k/uL (0-0.2); Basophils % (A) 1 %; Eosinophils # (A) 0.2 k/uL (0-0.7); Eosinophils % (A) 2 %; HCT 49.2 % (39.0-53.0); HGB 16.3 gm/dL (13.0-17.5); Lymphocytes # (A) 1.8 k/uL (1.0-4.8); Lymphocytes % (A) 17 %; MCH 31.3 pg (25.0-35.0); MCHC 33.2 g/dL (31.0-37.0); MCV 94.2 fL (80.0-100.0); Mean Platelet Volume 6.8; Monocytes # (A) 0.5 k/uL (0-1.0); Monocytes % (A) 5 %; Neutrophils # (A) 8.2 k/uL (1.3-7.7); Neutrophils % (A) 74 %; Platelet Count 207 k/uL (150-450); RBC 5.22 m/uL (4.30-5.90)
[2018-09-26] MEDS: IMIPRAMINE 25 MG TAB PO SCH (20:56)
[2018-09-26] MEDS: MIRTAZAPINE 15 MG TAB PO SCH (20:56)
[2018-09-26] MEDS: LITHIUM CARBONATE 300 MG CAP PO SCH (20:56)
[2018-09-26] MEDS: cloNIDine HCL 0.1 MG TAB PO SCH (20:56)
[2018-09-26] MEDS: lamoTRIgine 25 MG TAB PO SCH (20:56)
[2018-09-27] MEDS: ETHOSUXIMIDE PO SCH ×2 (08:51→21:30)
[2018-09-27] MEDS: PROPRANOLOL 40 MG TAB PO SCH ×2 (08:51→21:31)
[2018-09-27] MEDS: BENZTROPINE MESYLATE 1 MG TAB PO SCH (08:51)
[2018-09-27] MEDS: cloZAPine 100 MG TAB PO SCH ×3 (08:51→21:29)
--- NOTE | 2018-09-27 09:00 | P.PN ---
Progress Note - Text Interval history: The patient's found at the medication window. He follows me to an interview room. He states his mood is good. He indicates he slept through the night staff reportedly slept 7 hours. Appetite stable. He states that he has had conversations with his mom via phone and those of been supportive. He states he would like her present during the support meeting. We reviewed his psychotropic medications. He has no questions or concerns at this time. He continues to indicate he would like to be discharged. Mental status exam: The patient is a tall male appearing his stated age she has a disheveled appearance he is dressed in his own clothing. He is disheveled hygiene is adequate. Speech is fluent spontaneous. His affect is much brighter he demonstrates appropriate smiling and uses humor appropriately. He denies having any suicidal or homicidal ideation intent or plan. He is reporting no auditory or visual hallucinations or any specific delusions. He is demonstrating no objective evidence of psychosis. He is demonstrating no verbal or physical aggressiveness. He is seated calmly in the chair without any psychomotor agitation. There is no evidence of any involuntary repetitive movements. Insight and judgment improved from time of admission but chronically impaired due to intellectual disability. Plan: The patient will continue on his current medication. We will monitor him for safety. We will confer with his guardian. We will discuss his behavior over the last 24 hours during treatment team meeting. Vital signs reviewed. We will continue to encourage participation in the milieu.
[2018-09-27] MEDS: LITHIUM CARBONATE 300 MG CAP PO SCH (21:29)
[2018-09-27] MEDS: cloNIDine HCL 0.1 MG TAB PO SCH (21:30)
[2018-09-27] MEDS: IMIPRAMINE 25 MG TAB PO SCH (21:30)
[2018-09-27] MEDS: lamoTRIgine 25 MG TAB PO SCH (21:30)
[2018-09-27] MEDS: MIRTAZAPINE 15 MG TAB PO SCH (21:30)
[2018-09-28 07:01] VITALS: BP 129/71; PULSE 85; RESP 14; TEMP 97.5
[2018-09-28] MEDS: BENZTROPINE MESYLATE 1 MG TAB PO SCH (08:57)
[2018-09-28] MEDS: cloZAPine 100 MG TAB PO SCH (08:57)
[2018-09-28] MEDS: PROPRANOLOL 40 MG TAB PO SCH (08:57)
[2018-09-28] MEDS: ETHOSUXIMIDE PO SCH (08:57)
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
== END 2018-09-28 13:12 | disposition home or self-care (01) | DRG 885 ==
LOC: EEVIPCON 11:45 → EC 11:45 → 3MHU 14:13
PROVIDERS: ADMIT Psychiatry & Neurology Psychiatry; ATTEND Psychiatry & Neurology Psychiatry
DX: F25.0 Schizoaffective disorder, bipolar type (principal); R45.851 Suicidal ideations; F17.200 Nicotine dependence, unspecified, uncomplicated; F63.81 Intermittent explosive disorder; F79 Unspecified intellectual disabilities; G40.909 Epilepsy, unspecified, not intractable, without status epilepticus; I10 Essential (primary) hypertension; Z79.899 Other long term (current) drug therapy; Z88.8 Allergy status to other drugs, medicaments and biological substances; Z91.018 Allergy to other foods; Z71.6 Tobacco abuse counseling
CPT/HCPCS: 80053; 80061; 80178; 80306; 81001; 82075; 83036; 84443; 85025; 93005; 96372; 99284

== ENCOUNTER 2018-09-30 09:29 | Emergency (ER) | payer MEDICARE, OTHER ==
[2018-09-30] MEDS ORDERED: ONDANSETRON 4 MG/2 ML VIAL IVP STA (10:16)
[2018-09-30] MEDS ORDERED: SODIUM CHLORIDE 0.9% 1,000 ML IV STA ×2 (10:16)
[2018-09-30] MEDS ORDERED: KETOROLAC 30 MG/ML 1 ML VIAL IVP STA (10:17)
--- NOTE | 2018-09-30 10:38 | ED ---
Nausea/Vomiting/Diarrhea HPI - General Chief complaint: Nausea/Vomiting/Diarrhea Stated complaint: HYPERTENSION, VOMITING, DIZZINESS Time Seen by Provider: 09/30/18 09:59 Source: patient, family, RN notes reviewed, old records reviewed Mode of arrival: ambulatory Limitations: no limitations - History of Present Illness Initial comments: Patient is a 27-year-old male with a history of developmental delay. He presents emergency Department today with complaints of nausea, vomiting. Patient has had symptoms of dizziness from the vomiting. Symptoms started at 7 AM this morning. Denies any history of sick contacts. Denies any associated fevers or chills. Patient's mother reports that she thought it was related to his high blood pressure. Patient has a normal blood pressure upon arrival. Patient states that he has diffuse abdominal pain. - Related Data Home Medications Medication Instructions Recorded Confirmed cloZAPine [Clozaril] 50 mg PO DAILY@1200,1400 09/30/18 09/30/18 cloZAPine [Clozaril] 100 mg PO BID 09/30/18 09/30/18 Previous Rx's Medication Instructions Recorded Benztropine Mesylate [Cogentin] 1 mg PO DAILY #30 tab 09/28/18 Haloperidol Decanoate [Haldol D] 250 mg IM Q28D #1 vial 09/28/18 Imipramine HCl 50 mg PO HS #30 tablet 09/28/18 [place] Carbonate 600 mg PO HS #60 capsule 09/28/18 Mirtazapine [Remeron] 60 mg PO HS #60 tablet 09/28/18 cloNIDine HCL [Catapres] 0.1 mg PO HS #30 tab 09/28/18 Ondansetron Odt [Zofran Odt] 4 mg PO Q8HR PRN #12 tab 09/30/18 Polyethylene Glycol 3350 [Miralax] 17 gm PO DAILY #527 gm 09/30/18 Allergies Allergy/AdvReac Type Severity Reaction Status Date / Time divalproex sodium Allergy Severe Unknown Verified 09/30/18 10:53 [From Depakote] chocolate flavor AdvReac Rash/Hives Verified 09/30/18 10:53 Review of Systems ROS Statement: Those systems with pertinent positive or pertinent negative responses have been documented in the HPI. ROS Other: All systems not noted in ROS Statement are negative. Past Medical History Past Medical History: Neurologic Disorder, Seizure Disorder Additional Past Medical History / Comment(s): Developemental Disability, asperbergers,delayed speech,severe emotional impairment,explosive anger disorder.schizoaffective disorder History of Any Multi-Drug Resistant Organisms: None Reported Past Surgical History: No Surgical Hx Reported Past Anesthesia/Blood Transfusion Reactions: No Reported Reaction Past Psychological History: Schizoaffective Disorder, Schizophrenia Smoking Status: Current every day smoker Past Alcohol Use History: None Reported Past Drug Use History: None Reported General Exam - General Exam Comments Initial Comments: 27-year-old male. Alert and oriented 3. No distress. Limitations: no limitations General appearance: alert, in no apparent distress Head exam: Present: atraumatic, normocephalic, normal inspection Eye exam: Present: normal appearance, PERRL, EOMI. Absent: scleral icterus, conjunctival injection, periorbital swelling ENT exam: Present: normal exam, mucous membranes moist Neck exam: Present: normal inspection. Absent: tenderness, meningismus, lymph adenopathy Respiratory exam: Present: normal lung sounds bilaterally. Absent: respiratory distress, wheezes, rales, rhonchi, stridor Cardiovascular Exam: Present: regular rate, normal rhythm, normal heart sounds. Absent: systolic murmur, diastolic murmur, rubs, gallop, clicks GI/Abdominal exam: Present: soft, normal bowel sounds. Absent: distended, tenderness, guarding, rebound, rigid Extremities exam: Present: normal inspection, full ROM, normal capillary refill. Absent: tenderness, pedal edema, joint swelling, calf tenderness Back exam: Present: normal inspection Neurological exam: Present: alert, oriented X3, CN II-XII intact Psychiatric exam: Present: normal affect, normal mood Skin exam: Present: warm, dry, intact, normal color. Absent: rash Course Vital Signs 09/30/18 09:52 Temperature 97.3 F L Pulse Rate 89 Respiratory 18 Rate Blood Pressure 119/76 O2 Sat by Pulse 99 Oximetry Medical Decision Making - Medical Decision Making This patient's a 27-year-old male presents emergency with nausea and vomiting. Symptoms started at 7 AM. Patient's reevaluated this time, essentially in bed, Patient is a 4 and all lab work was reviewed and normal. He states his pain is diminished this time. Discussed likely viral gastroenteritis. He did have some evidence of constipation on his x-ray. Discussed that he needs take stool softeners. We'll discharge the Patient this time with prescription for Zofran and MiraLAX. Discussed close follow-up with PCP. - Lab Data Result diagrams: 09/30/18 11:27 09/30/18 11:27 Lab Results 09/30/18 09/30/18 Range/Units 11:27 11:27 WBC 7.7 (3.8-10.6) k/uL RBC 4.98 (4.30-5.90) m/uL Hgb 15.0 (13.0-17.5) gm/dL Hct 46.4 (39.0-53.0) % MCV 93.2 (80.0-100.0) fL MCH 30.2 (25.0-35.0) pg MCHC 32.4 (31.0-37.0) g/dL RDW 15.1 (11.5-15.5) % Plt Count 177 (150-450) k/uL Neutrophils % 69 % Lymphocytes % 16 % Monocytes % 10 % Eosinophils % 2 % Basophils % 1 % Neutrophils # 5.3 (1.3-7.7) k/uL Lymphocytes # 1.3 (1.0-4.8) k/uL Monocytes # 0.7 (0-1.0) k/uL Eosinophils # 0.1 (0-0.7) k/uL Basophils # 0.1 (0-0.2) k/uL Sodium 142 (137-145) mmol/L Potassium 4.5 (3.5-5.1) mmol/L Chloride 109 H (98-107) mmol/L Carbon Dioxide 27 (22-30) mmol/L Anion Gap 6 mmol/L BUN 12 (9-20) mg/dL Creatinine 0.79 (0.66-1.25) mg/dL Est GFR (CKD-EPI)AfAm >90 (>60 ml/min/1.73 sqM) Est GFR (CKD-EPI)NonAf >90 (>60 ml/min/1.73 sqM) Glucose 106 H (74-99) mg/dL Calcium 10.1 (8.4-10.2) mg/dL Total Bilirubin 0.3 (0.2-1.3) mg/dL AST 26 (17-59) U/L ALT 33 (21-72) U/L Alkaline Phosphatase 91 (38-126) U/L Total Protein 6.7 (6.3-8.2) g/dL Albumin 4.3 (3.5-5.0) g/dL Amylase 51 (30-110) U/L Lipase 51 (23-300) U/L - Radiology Data Radiology results: report reviewed Abdomen xray is negative for any acute intra-abdominal abnormality. His evidence of constipation noted. Disposition Clinical Impression: Nausea & vomiting, Constipation Disposition: HOME SELF-CARE Condition: Good Instructions (If sedation given, give patient instructions): Acute Nausea and Vomiting (ED) Additional Instructions: Patient has a close follow-up with primary care doctor. Take medication as pr escribed. Return to emergency department if any alarming signs or symptoms occur. Prescriptions: Polyethylene Glycol 3350 [Miralax] 17 gm PO DAILY #527 gm Ondansetron Odt [Zofran Odt] 4 mg PO Q8HR PRN #12 tab PRN Reason: Nausea Is patient prescribed a controlled substance at d/c from ED?: No Referrals: Rosendo Crouch MD [Primary Care Provider] - 1-2 days Time of Disposition: 12:50
--- NOTE | 2018-09-30 11:37 | XR ---
EXAMINATION TYPE: XR KUB , 2 VIEWS DATE OF EXAM ORDERED: 09/30/2018 HISTORY: pain. COMPARISON: None. FINDINGS: Lung bases are clear. Within the abdomen, the abdominal gas pattern is normal. There is no evidence of obstruction or free air. There is moderate stool in the right-sided colon. IMPRESSION: 1. NO ACUTE INTRA-ABDOMINAL ABNORMALITY. 2. CONSTIPATION.
[2018-09-30 11:43] LABS: Basophils # (A) 0.1 k/uL (0-0.2); Basophils % (A) 1 %; Eosinophils # (A) 0.1 k/uL (0-0.7); Eosinophils % (A) 2 %; HCT 46.4 % (39.0-53.0); Lymphocytes # (A) 1.3 k/uL (1.0-4.8); Lymphocytes % (A) 16 %; MCH 30.2 pg (25.0-35.0); MCHC 32.4 g/dL (31.0-37.0); MCV 93.2 fL (80.0-100.0); Mean Platelet Volume 7.7; Monocytes # (A) 0.7 k/uL (0-1.0); Monocytes % (A) 10 %; Neutrophils # (A) 5.3 k/uL (1.3-7.7); Neutrophils % (A) 69 %; Platelet Count 177 k/uL (150-450); RBC 4.98 m/uL (4.30-5.90); RDW 15.1 % (11.5-15.5); WBC 7.7 k/uL (3.8-10.6)
[2018-09-30 11:46] LABS: ALT 33 U/L (21-72); AST 26 U/L (17-59); African American GFR (CKD) >90 (>60 ml/min/1.73 sqM); Albumin 4.3 g/dL (3.5-5.0); Alkaline Phosphatase 91 U/L (38-126); Amylase 51 U/L (30-110); Anion Gap 6 mmol/L; Blood Urea Nitrogen 12 mg/dL (9-20); Calcium 10.1 mg/dL (8.4-10.2); Carbon Dioxide 27 mmol/L (22-30); Chloride 109 mmol/L (98-107); Glucose 106 mg/dL (74-99); Lipase 51 U/L (23-300); Potassium 4.5 mmol/L (3.5-5.1); Sodium 142 mmol/L (137-145); Total Bilirubin 0.3 mg/dL (0.2-1.3); Total Protein 6.7 g/dL (6.3-8.2)
[2018-09-30 13:00] LABS: Appearance,Urine Cloudy (Clear); Bilirubin,Urine Negative (Negative); Blood,Urine Negative (Negative); Color,Urine Light Yellow; Glucose,Urine (UA) Negative (Negative); Ketones,Urine Negative (Negative); Leukocyte Esterase,Urine Negative (Negative); Mucus,Urine Rare /hpf; Nitrite,Urine Negative (Negative); Protein,Urine Negative (Negative); Squamous Epithelial Cell,Urine 1 /hpf (0-4); Urobilinogen,Urine <2.0 mg/dL (<2.0); WBC,Urine <1 /hpf (0-5)
[2018-09-30 13:41] VITALS: BP 135/69; PULSE 81; RESP 16; TEMP 97.9
== END 2018-09-30 13:41 | disposition home or self-care (01) ==
LOC: EC 09:29
DX: K59.00 Constipation, unspecified (principal); R11.2 Nausea with vomiting, unspecified; R10.84 Generalized abdominal pain; R42 Dizziness and giddiness; F20.9 Schizophrenia, unspecified; F17.200 Nicotine dependence, unspecified, uncomplicated; Z79.899 Other long term (current) drug therapy; Z88.8 Allergy status to other drugs, medicaments and biological substances; Z91.018 Allergy to other foods; Z53.8 Procedure and treatment not carried out for other reasons
CPT/HCPCS: 36415; 80053; 82150; 83690; 85025; 81001; 74018; 99284; 96374; 96375; 96361; J2405; J1885

== ENCOUNTER 2018-12-05 13:25 | Emergency (ER) | payer MEDICARE, OTHER ==
--- NOTE | 2018-12-05 14:32 | ED ---
General Adult HPI - General Source: patient, police Mode of arrival: ambulatory Limitations: physical limitation <Donald William - Last Filed: 12/05/18 14:17> <Michelle Capone - Last Filed: 12/05/18 18:08> - General Chief complaint: Psychiatric Symptoms Stated complaint: Mental Health Time Seen by Provider: 12/05/18 13:36 - History of Present Illness Initial comments: Patient is a pleasant 28-year-old male presenting to the emergency department for agitation. Patient states he has been angry with his family as well as with [facility]. Patient denies making any threats of suicidal or homicidal thoughts. Patient denies any thoughts of suicide or homicide. No physical complaints. No hallucinations. No alcohol or street drug use. (Donald William) - Related Data Home Medications Medication Instructions Recorded Confirmed cloZAPine [Clozaril] 100 mg PO BID 09/30/18 12/05/18 cloZAPine [Clozaril] 200 mg PO HS 09/30/18 12/05/18 [place] Carbonate 900 mg PO HS 12/05/18 12/05/18 Mirtazapine [Remeron] 30 mg PO HS 12/05/18 12/05/18 Mirtazapine [Remeron] 45 mg PO HS 12/05/18 12/05/18 Previous Rx's Medication Instructions Recorded Benztropine Mesylate [Cogentin] 1 mg PO DAILY #30 tab 09/28/18 Haloperidol Decanoate [Haldol D] 250 mg IM Q28D #1 vial 09/28/18 Imipramine HCl 50 mg PO HS #30 tablet 09/28/18 cloNIDine HCL [Catapres] 0.1 mg PO HS #30 tab 09/28/18 Allergies Allergy/AdvReac Type Severity Reaction Status Date / Time divalproex sodium Allergy Severe Unknown Verified 12/05/18 14:15 [From Depakote] chocolate flavor AdvReac Rash/Hives Verified 12/05/18 14:15 Review of Systems ROS Other: All systems not noted in ROS Statement are negative. Constitutional: Denies: fever Eyes: Denies: eye pain ENT: Denies: ear pain Respiratory: Denies: cough Cardiovascular: Denies: chest pain Endocrine: Denies: fatigue Gastrointestinal: Denies: abdominal pain Genitourinary: Denies: dysuria Musculoskeletal: Denies: back pain Skin: Denies: rash Neurological: Denies: weakness Psychiatric: Denies: homicidal thoughts, suicidal thoughts <Donald William - Last Filed: 12/05/18 14:17> ROS Other: All systems not noted in ROS Statement are negative. <Michelle Capone Jose - Last Filed: 12/05/18 18:08> ROS Statement: Those systems with pertinent positive or pertinent negative responses have been documented in the HPI. Past Medical History Past Medical History: Neurologic Disorder, Seizure Disorder Additional Past Medical History / Comment(s): Developemental Disability, asperbergers,delayed speech,severe emotional impairment,explosive anger disorder.schizoaffective disorder History of Any Multi-Drug Resistant Organisms: None Reported Past Surgical History: No Surgical Hx Reported Past Anesthesia/Blood Transfusion Reactions: No Reported Reaction Past Psychological History: Schizoaffective Disorder, Schizophrenia Smoking Status: Current every day smoker Past Alcohol Use History: None Reported Past Drug Use History: None Reported <Donald William - Last Filed: 12/05/18 14:17> General Exam Limitations: physical limitation General appearance: alert, in no apparent distress Head exam: Present: atraumatic Eye exam: Present: normal appearance Neck exam: Present: normal inspection Respiratory exam: Present: normal lung sounds bilaterally Cardiovascular Exam: Present: regular rate, normal rhythm GI/Abdominal exam: Present: soft. Absent: tenderness Extremities exam: Present: normal inspection Neurological exam: Present: alert Psychiatric exam: Present: normal affect, normal mood Skin exam: Present: normal color <Donald William - Last Filed: 12/05/18 14:17> Course Vital Signs 12/05/18 13:31 Temperature 98.0 F Pulse Rate 72 Respiratory 18 Rate Blood Pressure 139/86 O2 Sat by Pulse 96 Oximetry Medical Decision Making - Lab Data Lab Results 12/05/18 Range/Units 14:40 Urine Opiates Screen Not Detected (NotDetected) Ur Oxycodone Screen Not Detected (NotDetected) Urine Methadone Screen Not Detected (NotDetected) Ur Propoxyphene Screen Not Detected (NotDetected) Ur Barbiturates Screen Not Detected (NotDetected) U Tricyclic Antidepress Detected H (NotDetected) Ur Phencyclidine Scrn Not Detected (NotDetected) Ur Amphetamines Screen Not Detected (NotDetected) U Methamphetamines Scrn Not Detected (NotDetected) U Benzodiazepines Scrn Detected H (NotDetected) Urine Cocaine Screen Not Detected (NotDetected) U Marijuana (THC) Screen Not Detected (NotDetected) Disposition <Donald William - Last Filed: 12/05/18 14:17> Is patient prescribed a controlled substance at d/c from ED?: No Time of Disposition: 18:08 <Michelle Capone - Last Filed: 12/05/18 18:08> Clinical Impression: Mood disorder, Intermittent explosive disorder in adult Disposition: HOME SELF-CARE Condition: Stable Instructions (If sedation given, give patient instructions): Mood Disorders (ED) Additional Instructions: Please follow-up with your therapist at your next scheduled appointment. If you have any health concerns, please call the mobile crisis unit or return to the emergency department. Referrals: Rosendo Crouch MD [Primary Care Provider] - 1-2 days
[2018-12-05 15:02] LABS: Amphetamine Screen,Urine Not Detected (NotDetected); Barbiturate Screen,Urine Not Detected (NotDetected); Benzodiazepines Screen,Urine Detected (NotDetected); Cocaine Screen,Urine Not Detected (NotDetected); Methadone Screen, Urine Not Detected (NotDetected); Opiate Screen,Urine Not Detected (NotDetected); Oxycodone Screen, Urine Not Detected (NotDetected); Phencyclidine Screen,Urine Not Detected (NotDetected); Tricyclic Antidepressant,Urine Detected (NotDetected); Urn Cannabinoid Scrn Not Detected (NotDetected)
[2018-12-05 18:18] VITALS: BP 139/90; PULSE 68; RESP 16; TEMP 97.4
== END 2018-12-05 18:19 | disposition home or self-care (01) ==
LOC: EC 13:25
DX: F63.81 Intermittent explosive disorder (principal); F25.9 Schizoaffective disorder, unspecified; F17.200 Nicotine dependence, unspecified, uncomplicated; Z79.899 Other long term (current) drug therapy; Z91.018 Allergy to other foods; Z88.8 Allergy status to other drugs, medicaments and biological substances
CPT/HCPCS: 80306; 82075; 99285

== ENCOUNTER 2018-12-15 19:06 | Emergency (ER) | payer MEDICARE, OTHER ==
[2018-12-15 19:20] VITALS: BP 128/87; PULSE 103; RESP 16; TEMP 98.2
--- NOTE | 2018-12-15 20:00 | ED ---
General Adult HPI - General Chief complaint: Psychiatric Symptoms Stated complaint: Mental Health Time Seen by Provider: 12/15/18 19:22 Source: patient, RN notes reviewed, old records reviewed Mode of arrival: ambulatory Limitations: no limitations - History of Present Illness Initial comments: 28 year old Male patient passed no history of disorder, developmental delay presents ED chief complaint racing thoughts. Patient reports that this began yesterday. Patient states that the thoughts go from happy to sad. Denies any suicidal or homicidal ideations. Denies taking any action to hurt himself or others today. Denies All other complaints. Systemic: Pt denies fatigue, fever/chills, rash. Pt denies weakness, night sweats, weight loss. Neuro: Pt denies headache, visual disturbances, syncope or pre-syncope. HEENT: Pt denies ocular discharge or irritation, otalgia, rhinorrhea, pharyngitis or notable lymphadenopathy. Cardiopulmonary: Pt denies chest pain, SOB, heart palpitations, dyspnea on exertion. Abdominal/GI: Pt denies abdominal pain, n/v/d. : Pt denies dysuria, burning w/ urination, frequency/urgency. Denies new onset urinary or bowel incontinence. MSK: Pt denies myalgia, loss of strength or function in extremities. Neuro: Pt denies new onset weakness, paresthesias. - Related Data Home Medications Medication Instructions Recorded Confirmed cloZAPine [Clozaril] 100 mg PO BID 09/30/18 12/15/18 cloZAPine [Clozaril] 200 mg PO HS 09/30/18 12/15/18 [place] Carbonate 900 mg PO HS 12/05/18 12/15/18 Mirtazapine [Remeron] 45 mg PO HS 12/05/18 12/15/18 Mirtazapine [Remeron] 15 mg PO HS 12/15/18 12/15/18 Previous Rx's Medication Instructions Recorded Benztropine Mesylate [Cogentin] 1 mg PO DAILY #30 tab 09/28/18 Haloperidol Decanoate [Haldol D] 250 mg IM Q28D #1 vial 09/28/18 Imipramine HCl 50 mg PO HS #30 tablet 09/28/18 cloNIDine HCL [Catapres] 0.1 mg PO HS #30 tab 09/28/18 Allergies Allergy/AdvReac Type Severity Reaction Status Date / Time divalproex sodium Allergy Severe Unknown Verified 12/15/18 20:16 [From Depakote] chocolate flavor AdvReac Rash/Hives Verified 12/15/18 20:16 Review of Systems ROS Statement: Those systems with pertinent positive or pertinent negative responses have been documented in the HPI. ROS Other: All systems not noted in ROS Statement are negative. Past Medical History Past Medical History: Neurologic Disorder, Seizure Disorder Additional Past Medical History / Comment(s): Developemental Disability, asper bergers,delayed speech,severe emotional impairment,explosive anger disorder.schizoaffective disorder History of Any Multi-Drug Resistant Organisms: None Reported Past Surgical History: No Surgical Hx Reported Past Anesthesia/Blood Transfusion Reactions: No Reported Reaction Past Psychological History: Schizoaffective Disorder, Schizophrenia Smoking Status: Current every day smoker Past Alcohol Use History: None Reported Past Drug Use History: None Reported General Exam - General Exam Comments Initial Comments: Constitutional: NAD, AOX3, Pt has pleasant affect. HEENT: NC/AT, trachea midline, neck supple, no lymphadenopathy. Posterior pharynx non erythematous, without exudates. External ears appear normal, without discharge. Mucous membranes moist. Eyes PERRLA, EOM intact. There is no scleral icterus. No pallor noted. Cardiopulmonary: RRR, no murmurs, rubs or gallops, no JVD noted. Lungs CTAB in anterior and posterior mosher. No peripheral edema. Heart rate 64 on exam Abdominal exam: Abdomen soft and non-distended. Abdomen non-tender to palpation in all 4 quadrants. Bowel sounds active in LLQ. No hepatosplenomegaly. No ecchymosis Neuro: CN II-XII grossly intact. No nuchal rigidity. No raccon eyes, no color[place] sign, no hemotympanum. No cervical spinal tenderness. MSK: No posterior calf tenderness bilaterally, homans sign negative bilaterally. Posterior tibialis and radial pulse +2 bilaterally. Sensation intact in upper and lower extremities. Full active ROM in upper and lower extremities, 5/5 stregnth. Limitations: no limitations Course Vital Signs 12/15/18 19:18 Temperature 98.2 F Pulse Rate 103 H Respiratory 16 Rate Blood Pressure 128/87 O2 Sat by Pulse 98 Oximetry Medical Decision Making - Medical Decision Making 28-year-old male patient presents to ED for she is complaining of racing thoughts. Patient will signs stable, afebrile. Physical exam did not display acute pathology. Patient denies suicidal or homicidal ideations. Patient evaluated by EPS and they recommended discharge and outpatient follow-up. Discussed with Dr. Capone. - Lab Data Lab Results 12/15/18 Range/Units 19:41 Urine Opiates Screen Not Detected (NotDetected) Ur Oxycodone Screen Not Detected (NotDetected) Urine Methadone Screen Not Detected (NotDetected) Ur Propoxyphene Screen Not Detected (NotDetected) Ur Barbiturates Screen Not Detected (NotDetected) U Tricyclic Antidepress Detected H (NotDetected) Ur Phencyclidine Scrn Not Detected (NotDetected) Ur Amphetamines Screen Not Detected (NotDetected) U Methamphetamines Scrn Not Detected (NotDetected) U Benzodiazepines Scrn Detected H (NotDetected) Urine Cocaine Screen Not Detected (NotDetected) U Marijuana (THC) Screen Not Detected (NotDetected) Disposition Clinical Impression: Psychiatric disorder Disposition: HOME SELF-CARE Condition: Stable Instructions (If sedation given, give patient instructions): Depression (ED) Additional Instructions: Patient to adhere to previously discussed treatment plan and will take medication(s) as directed. Patient to follow up with PCP in 1-2 days. Patient to return to ED if symptoms do not improve. Return to ER if condition worsens in any way. Is patient prescribed a controlled substance at d/c from ED?: No Referrals: Rosendo Crouch MD [Primary Care Provider] - 1-2 days
[2018-12-15 20:18] LABS: Amphetamine Screen,Urine Not Detected (NotDetected); Barbiturate Screen,Urine Not Detected (NotDetected); Benzodiazepines Screen,Urine Detected (NotDetected); Cocaine Screen,Urine Not Detected (NotDetected); Methadone Screen, Urine Not Detected (NotDetected); Opiate Screen,Urine Not Detected (NotDetected); Oxycodone Screen, Urine Not Detected (NotDetected); Phencyclidine Screen,Urine Not Detected (NotDetected); Tricyclic Antidepressant,Urine Detected (NotDetected); Urn Cannabinoid Scrn Not Detected (NotDetected)
== END 2018-12-15 21:11 | disposition home or self-care (01) ==
LOC: EC 19:06
DX: F20.9 Schizophrenia, unspecified (principal); F17.200 Nicotine dependence, unspecified, uncomplicated; Z88.8 Allergy status to other drugs, medicaments and biological substances; Z91.02 Food additives allergy status; Z79.899 Other long term (current) drug therapy
CPT/HCPCS: 80306; 99284

== ENCOUNTER → 2018-12-21 | Outpatient (CLI) | payer MEDICARE, OTHER ==
[2018-12-24 14:13] LABS: Clozapine (Clozaril) 171 ng/mL (200-700); Norclozapine 96 ng/mL (200-700)
== END | disposition home or self-care (01) ==
LOC: LABWHC1 11:43
PROVIDERS: ATTEND Psychiatry & Neurology Psychiatry
DX: Z65.3 Problems related to other legal circumstances (principal)
CPT/HCPCS: 36415; 80159; 80178

== ENCOUNTER 2019-04-03 07:00 | Emergency (ER) | payer MEDICARE, OTHER ==
[2019-04-03 07:06] VITALS: RESP 18; TEMP 97.9
[2019-04-03 08:26] LABS: Amphetamine Screen,Urine Not Detected (NotDetected); Barbiturate Screen,Urine Detected (NotDetected); Benzodiazepines Screen,Urine Not Detected (NotDetected); Cocaine Screen,Urine Not Detected (NotDetected); Methadone Screen, Urine Not Detected (NotDetected); Opiate Screen,Urine Not Detected (NotDetected); Oxycodone Screen, Urine Not Detected (NotDetected); Phencyclidine Screen,Urine Not Detected (NotDetected); Tricyclic Antidepressant,Urine Detected (NotDetected); Urn Cannabinoid Scrn Not Detected (NotDetected)
--- NOTE | 2019-04-03 08:32 | ED ---
General Adult HPI - General Chief complaint: Psychiatric Symptoms Stated complaint: Mental Health Time Seen by Provider: 04/03/19 07:00 Source: patient Mode of arrival: ambulatory Limitations: no limitations - History of Present Illness Initial comments: The patient is a 28-year-old male with past medical history of developmental disability, Asperger's and seizures who presents emergency department with reported aggressive behavior. The patient states that he's been very anxious lately which makes him feel destructive. Reports that he will think about things in the past and it makes him angry. This morning he woke up and felt like he wanted a punch all the windows out the house. Also states that he wanted to bite something. He called police who reported that he should go into the emergency room to the evaluated. States he's been instructed by his [facility] therapist any time he has these thoughts that he should be evaluated. He has had some recent medication changes because of reported bad dreams. The patient denies any suicidal ideations or homicidal ideations. He's been previously hospitalized. Last of which was in September where he was hospitalized here. This was after he had broke all the windows in his house. Mom is at bedside and helps supplement the history. He denies any suicidal or homicidal ideations. No drug or alcohol abuse. Denies any additional symptoms include fevers, chills, headache, visual changes, chest pain or shortness of breath. There are no other alleviating, periodontal assistant modifying factors - Related Data Home Medications Medication Instructions Recorded Confirmed cloZAPine [Clozaril] 100 mg PO BID 09/30/18 12/15/18 cloZAPine [Clozaril] 200 mg PO HS 09/30/18 12/15/18 [place] Carbonate 900 mg PO HS 12/05/18 12/15/18 Mirtazapine [Remeron] 45 mg PO HS 12/05/18 12/15/18 Mirtazapine [Remeron] 15 mg PO HS 12/15/18 12/15/18 Previous Rx's Medication Instructions Recorded Benztropine Mesylate [Cogentin] 1 mg PO DAILY #30 tab 09/28/18 Haloperidol Decanoate [Haldol D] 250 mg IM Q28D #1 vial 09/28/18 Imipramine HCl 50 mg PO HS #30 tablet 09/28/18 cloNIDine HCL [Catapres] 0.1 mg PO HS #30 tab 09/28/18 Allergies Allergy/AdvReac Type Severity Reaction Status Date / Time divalproex sodium Allergy Severe Unknown Verified 03/23/19 15:38 [From Depakote] chocolate flavor AdvReac Rash/Hives Verified 03/23/19 15:38 Review of Systems ROS Statement: Those systems with pertinent positive or pertinent negative responses have been documented in the HPI. ROS Other: All systems not noted in ROS Statement are negative. Past Medical History Past Medical History: Neurologic Disorder, Seizure Disorder Additional Past Medical History / Comment(s): Developemental Disability, asperbergers,delayed speech,severe emotional impairment,explosive anger disorder.schizoaffective disorder History of Any Multi-Drug Resistant Organisms: None Reported Past Surgical History: No Surgical Hx Reported Past Anesthesia/Blood Transfusion Reactions: No Reported Reaction Past Psychological History: Schizoaffective Disorder, Schizophrenia Smoking Status: Current every day smoker Past Alcohol Use History: None Reported Past Drug Use History: None Reported General Exam Limitations: no limitations General appearance: alert, in no apparent distress Head exam: Present: atraumatic, normocephalic, normal inspection Eye exam: Present: normal appearance, PERRL, EOMI. Absent: scleral icterus, conjunctival injection, periorbital swelling ENT exam: Present: normal exam, mucous membranes moist Neck exam: Present: normal inspection. Absent: tenderness, meningismus, lymphadenopathy Respiratory exam: Present: normal lung sounds bilaterally. Absent: respiratory distress, wheezes, rales, rhonchi, stridor Cardiovascular Exam: Present: regular rate, normal rhythm, normal heart sounds. Absent: systolic murmur, diastolic murmur, rubs, gallop, clicks GI/Abdominal exam: Present: soft, normal bowel sounds. Absent: distended, tenderness, guarding, rebound, rigid Extremities exam: Present: normal inspection, full ROM, normal capillary refill. Absent: tenderness, pedal edema, joint swelling, calf tenderness Back exam: Present: normal inspection Neurological exam: Present: alert, oriented X3, CN II-XII intact Psychiatric exam: Present: normal affect, normal mood Skin exam: Present: warm, dry, intact, normal color. Absent: rash Course Vital Signs 04/03/19 04/03/19 07:01 09:28 Temperature 97.9 F Pulse Rate 84 72 Respiratory 18 18 Rate Blood Pressure 144/78 138/72 O2 Sat by Pulse 99 100 Oximetry Medical Decision Making - Medical Decision Making Urine sample which demonstrates barbiturates and tricyclic antidepressants. He does have an alcohol performed and patient's back is negative. We did call [facility]. They do reevaluate the patient states that he is at his baseline. They do believe that he is stable for discharge. They did perform a safety plan with the patient. This is discussed with patient's mother and she does feel comfortable taking him home. The patient is a new or worsening symptoms he should be brought back to the emergency room. The patient and his mother went agreement treatment plan patient was discharged home in stable condition - Lab Data Lab Results 04/03/19 Range/Units 07:32 Urine Opiates Screen Not Detected (NotDetected) Ur Oxycodone Screen Not Detected (NotDetected) Urine Methadone Screen Not Detected (NotDetected) Ur Propoxyphene Screen Not Detected (NotDetected) Ur Barbiturates Screen Detected H (NotDetected) U Tricyclic Antidepress Detected H (NotDetected) Ur Phencyclidine Scrn Not Detected (NotDetected) Ur Amphetamines Screen Not Detected (NotDetected) U Methamphetamines Scrn Not Detected (NotDetected) U Benzodiazepines Scrn Not Detected (NotDetected) Urine Cocaine Screen Not Detected (NotDetected) U Marijuana (THC) Screen Not Detected (NotDetected) Disposition Clinical Impression: Intermittent explosive disorder in adult Disposition: HOME SELF-CARE Condition: Stable Additional Instructions: Please follow up with [facility] at your scheduled appointment. Return to the emergency room for any new or worsening symptoms Is patient prescribed a controlled substance at d/c from ED?: No Referrals: Rosendo Crouch MD [Primary Care Provider] - 1-2 days Time of Disposition: 08:57
[2019-04-03 09:29] VITALS: BP 138/72; PULSE 72
== END 2019-04-03 09:38 | disposition home or self-care (01) ==
LOC: EC 07:00
DX: F63.81 Intermittent explosive disorder (principal); F20.9 Schizophrenia, unspecified; F17.200 Nicotine dependence, unspecified, uncomplicated; Z88.8 Allergy status to other drugs, medicaments and biological substances; Z91.02 Food additives allergy status; Z79.899 Other long term (current) drug therapy; F84.5 Asperger's syndrome
CPT/HCPCS: 80306; 82075; 99285

== ENCOUNTER 2020-01-06 22:41 | Emergency (ER) | payer MEDICARE, OTHER ==
[2020-01-06 22:48] VITALS: RESP 18
[2020-01-06 23:35] LABS: Amphetamine Screen,Urine Not Detected (NotDetected); Barbiturate Screen,Urine Not Detected (NotDetected); Benzodiazepines Screen,Urine Not Detected (NotDetected); Cocaine Screen,Urine Not Detected (NotDetected); Methadone Screen, Urine Not Detected (NotDetected); Opiate Screen,Urine Not Detected (NotDetected); Oxycodone Screen, Urine Not Detected (NotDetected); Phencyclidine Screen,Urine Not Detected (NotDetected); Tricyclic Antidepressant,Urine Not Detected (NotDetected); Urn Cannabinoid Scrn Not Detected (NotDetected)
--- NOTE | 2020-01-06 23:53 | ED ---
Psych HPI - General Chief Complaint: Psychiatric Symptoms Stated Complaint: Mental health Time Seen by Provider: 01/06/20 22:55 Source: patient Mode of arrival: ambulatory - History of Present Illness Initial Comments: Danial is a pleasant 29-year-old male with a history of emotional explosive disorder and seizure disorder. Patient does have some cognitive delay. Patient reports that tonight he was on the phone with his brother who is being mean to him. Patient reports he felt like he was going to explode with anger. He has having thoughts of breaking things in his house. He called his mom to help calm him down and she advised him to come to the hospital. Patient reports he did not hurt anybody or anything. The patient states he needs to speak with a psychiatric worker. - Related Data Home Medications Medication Instructions Recorded Confirmed cloZAPine [Clozaril] 100 mg PO BID 09/30/18 12/15/18 cloZAPine [Clozaril] 200 mg PO HS 09/30/18 12/15/18 [place] Carbonate 900 mg PO HS 12/05/18 12/15/18 Mirtazapine [Remeron] 45 mg PO HS 12/05/18 12/15/18 Mirtazapine [Remeron] 15 mg PO HS 12/15/18 12/15/18 Previous Rx's Medication Instructions Recorded Benztropine Mesylate [Cogentin] 1 mg PO DAILY #30 tab 09/28/18 Haloperidol Decanoate [Haldol D] 250 mg IM Q28D #1 vial 09/28/18 Imipramine HCl [Tofranil] 50 mg PO HS #30 tablet 09/28/18 cloNIDine HCL [Catapres] 0.1 mg PO HS #30 tab 09/28/18 Allergies Allergy/AdvReac Type Severity Reaction Status Date / Time divalproex sodium Allergy Severe Unknown Verified 01/06/20 22:48 [From Depakote] chocolate flavor AdvReac Rash/Hives Verified 01/06/20 22:48 Review of Systems ROS Statement: Those systems with pertinent positive or pertinent negative responses have been documented in the HPI. ROS Other: All systems not noted in ROS Statement are negative. Past Medical History Past Medical History: Neurologic Disorder, Seizure Disorder Additional Past Medical History / Comment(s): Developemental Disability, asperbergers,delayed speech,severe emotional impairment,explosive anger disorder.schizoaffective disorder History of Any Multi-Drug Resistant Organisms: None Reported Past Surgical History: No Surgical Hx Reported Past Anesthesia/Blood Transfusion Reactions: No Reported Reaction Past Psychological History: Anxiety, Depression, Schizoaffective Disorder, Schizophrenia Smoking Status: Current every day smoker Past Alcohol Use History: None Reported Past Drug Use History: None Reported General Exam - General Exam Comments Initial Comments: Physical Exam GENERAL: Patient is well-developed and well-nourished. Patient is nontoxic and well-hydrated and is in no distress. HENT: Normocephalic, Atraumatic. Poor dentition with multiple broken teeth and dental caries EYES: PERRL, EOMI PULMONARY: Unlabored respirations. CARDIOVASCULAR: RRR Warm and well perfused extremities ABDOMEN: Non-distended SKIN: No rashes or bruising : Deferred NEUROLOGIC: Alert and oriented MUSCULOSKELETAL: Moving all extremities with no apparent injury PSYCHIATRIC: No SI/HI, reports agitation earlier but calm and cooperative now Limitations: no limitations Course Vital Signs 01/06/20 22:43 Temperature 96.9 F L Pulse Rate 101 H Respiratory 18 Rate Blood Pressure 107/75 O2 Sat by Pulse 98 Oximetry Medical Decision Making - Medical Decision Making Patient was seen and evaluated history is obtained from the patient Medically cleared for evaluation by emergency psychiatric services Patient was evaluated by emergency psychiatric services who discussed patient care with his mother and the physician on-call. They do feel the patient is safe for discharge home at this time. Patient's not having any suicidal or homicidal ideations. He had thoughts of breaking stuff in his home but did not break anything. Safety plan was discussed with patient he was discharged home in stable condition. - Lab Data Lab Results 01/06/20 Range/Units 23:15 Urine Opiates Screen Not Detected (NotDetected) Ur Oxycodone Screen Not Detected (NotDetected) Urine Methadone Screen Not Detected (NotDetected) Ur Propoxyphene Screen Not Detected (NotDetected) Ur Barbiturates Screen Not Detected (NotDetected) U Tricyclic Antidepress Not Detected (NotDetected) Ur Phencyclidine Scrn Not Detected (NotDetected) Ur Amphetamines Screen Not Detected (NotDetected) U Methamphetamines Scrn Not Detected (NotDetected) U Benzodiazepines Scrn Not Detected (NotDetected) Urine Cocaine Screen Not Detected (NotDetected) U Marijuana (THC) Screen Not Detected (NotDetected) Disposition Clinical Impression: Adjustment reaction of adult life Disposition: HOME SELF-CARE Condition: Stable Additional Instructions: If you are feeling upset or like hurting yourself or others call 911 or return to the ER Is patient prescribed a controlled substance at d/c from ED?: No Referrals: Rosendo Crouch MD [Primary Care Provider] - 1-2 days
[2020-01-07 01:15] VITALS: BP 113/79; PULSE 94; TEMP 97.5
== END 2020-01-07 01:15 | disposition home or self-care (01) ==
LOC: EC 22:41
DX: F43.20 Adjustment disorder, unspecified (principal); F41.9 Anxiety disorder, unspecified; F32.9 Major depressive disorder, single episode, unspecified; F23 Brief psychotic disorder; F25.9 Schizoaffective disorder, unspecified; F17.200 Nicotine dependence, unspecified, uncomplicated; G40.909 Epilepsy, unspecified, not intractable, without status epilepticus; F80.9 Developmental disorder of speech and language, unspecified; Z79.899 Other long term (current) drug therapy; Z88.8 Allergy status to other drugs, medicaments and biological substances; Z91.018 Allergy to other foods
CPT/HCPCS: 80306; 82075; 99285

== ENCOUNTER 2020-01-12 23:31 | Emergency (ER) | payer MEDICARE, OTHER ==
[2020-01-12 23:38] VITALS: BP 116/78; PULSE 102; RESP 20; TEMP 98.1
[2020-01-12] MEDS ORDERED: LORazepam 1 MG TAB PO STA (23:48)
--- NOTE | 2020-01-12 23:49 | ED ---
General Adult HPI - General Chief complaint: Psychiatric Symptoms Stated complaint: Mental Health Time Seen by Provider: 01/12/20 23:40 Source: patient Mode of arrival: ambulatory Limitations: no limitations - History of Present Illness Initial comments: 29-year-old male patient presents to the emergency department today reporting changes in his mood. Patient states for the last 2 days he has been having increased anger. Patient states that sometimes this happens before having a seizure. States his last seizure was about one month ago. He does take medication for this. States he does take his medications daily as directed. He does report some intermittent depression as well. He denies any suicidal or homicidal ideation. Patient denies any recent rash, fever, chills, cough, shortness of breath, chest pain, abdominal pain, nausea, vomiting, diarrhea, constipation, back pain, numbness, tingling, dizziness, weakness, hematuria, dysuria, urinary urgency, urinary frequency, headache, visual changes, or any other complaints. - Related Data Home Medications Medication Instructions Recorded Confirmed cloZAPine [Clozaril] 100 mg PO BID 09/30/18 12/15/18 cloZAPine [Clozaril] 200 mg PO HS 09/30/18 12/15/18 [place] Carbonate 900 mg PO HS 12/05/18 12/15/18 Mirtazapine [Remeron] 45 mg PO HS 12/05/18 12/15/18 Mirtazapine [Remeron] 15 mg PO HS 12/15/18 12/15/18 Previous Rx's Medication Instructions Recorded Benztropine Mesylate [Cogentin] 1 mg PO DAILY #30 tab 09/28/18 Haloperidol Decanoate [Haldol D] 250 mg IM Q28D #1 vial 09/28/18 Imipramine HCl [Tofranil] 50 mg PO HS #30 tablet 09/28/18 cloNIDine HCL [Catapres] 0.1 mg PO HS #30 tab 09/28/18 Allergies Allergy/AdvReac Type Severity Reaction Status Date / Time divalproex sodium Allergy Severe Unknown Verified 01/12/20 23:38 [From Depakote] chocolate flavor AdvReac Rash/Hives Verified 01/12/20 23:38 Review of Systems ROS Statement: Those systems with pertinent positive or pertinent negative responses have been documented in the HPI. ROS Other: All systems not noted in ROS Statement are negative. Past Medical History Past Medical History: Neurologic Disorder, Seizure Disorder Additional Past Medical History / Comment(s): Developemental Disability, asperbergers,delayed speech,severe emotional impairment,explosive anger disorder.schizoaffective disorder History of Any Multi-Drug Resistant Organisms: None Reported Past Surgical History: No Surgical Hx Reported Past Anesthesia/Blood Transfusion Reactions: No Reported Reaction Past Psychological History: Anxiety, Depression, Schizoaffective Disorder, Schizophrenia Smoking Status: Current every day smoker Past Alcohol Use History: None Reported Past Drug Use History: None Reported General Exam Limitations: no limitations General appearance: alert, in no apparent distress, other (This is a well- developed, well-nourished adult male patient in no acute distress. Vital signs upon presentation are temperature 98.1F, pulse 102, respirations 20, blood pressure 116/78, pulse ox 97% on room air.) ENT exam: Present: normal exam, normal oropharynx, mucous membranes moist Respiratory exam: Present: normal lung sounds bilaterally. Absent: respiratory distress, wheezes, rales, rhonchi, stridor Cardiovascular Exam: Present: regular rate, normal rhythm, normal heart sounds. Absent: systolic murmur, diastolic murmur, rubs, gallop, clicks GI/Abdominal exam: Present: soft, normal bowel sounds. Absent: distended, tenderness, guarding, rebound, rigid Neurological exam: Present: alert, oriented X3, CN II-XII intact Psychiatric exam: Present: normal affect, normal mood Skin exam: Present: warm, dry, intact, normal color. Absent: rash Course Vital Signs 01/12/20 23:33 Temperature 98.1 F Pulse Rate 102 H Respiratory 20 Rate Blood Pressure 116/78 O2 Sat by Pulse 97 Oximetry Medical Decision Making - Medical Decision Making 29-year-old male patient with past medical history significant for psychiatric illness and seizures presents to the emergency department today reporting mood swings increased anger and occasional depression. Denies suicidal or homicidal ideation. He is not sufficient. He is not drinking alcohol. Patient is concerned that due to his mood swings that he going to have a seizure. He has been taking his seizure medication as directed. Physical examination is unremarkable. He is resting comfortably. We'll give a dose of Ativan and be discharging him home to follow-up with his primary care physician and his neurologist. He is also instructed to follow up with a psychiatrist for further evaluation as soon as possible. Return parameters were discussed in detail. He verbalizes understanding and agrees with this plan. We will pay for a cab ride home for him. Disposition Clinical Impression: Mood swings Disposition: HOME SELF-CARE Condition: Good Instructions (If sedation given, give patient instructions): Mood Disorders (ED) Additional Instructions: Follow-up with your primary care physician for recheck in 1-2 days. Follow-up with her psychiatrist as needed. Return to the emergency department immediately for any new, worsening, or concerning symptoms. Is patient prescribed a controlled substance at d/c from ED?: No Referrals: Rosendo Crouch MD [Primary Care Provider] - 1-2 days Time of Disposition: 23:49
== END 2020-01-13 00:11 | disposition home or self-care (01) ==
LOC: EC 23:31
DX: F39 Unspecified mood [affective] disorder (principal); F41.9 Anxiety disorder, unspecified; F32.9 Major depressive disorder, single episode, unspecified; F25.9 Schizoaffective disorder, unspecified; F17.200 Nicotine dependence, unspecified, uncomplicated; Z79.899 Other long term (current) drug therapy; Z88.8 Allergy status to other drugs, medicaments and biological substances; Z91.018 Allergy to other foods
CPT/HCPCS: 99283

== ENCOUNTER 2020-01-31 22:06 | Emergency (ER) | payer MEDICARE, OTHER ==
[2020-01-31 22:11] VITALS: RESP 20
[2020-01-31 23:23] LABS: Basophils # (A) 0.1 k/uL (0-0.2); Basophils % (A) 1 %; Eosinophils % (A) 0 %; HCT 47.4 % (39.0-53.0); HGB 15.4 gm/dL (13.0-17.5); Lymphocytes # (A) 2.1 k/uL (1.0-4.8); Lymphocytes % (A) 22 %; MCH 30.6 pg (25.0-35.0); MCHC 32.5 g/dL (31.0-37.0); MCV 93.9 fL (80.0-100.0); Mean Platelet Volume 7.8; Monocytes # (A) 0.8 k/uL (0-1.0); Monocytes % (A) 8 %; Neutrophils # (A) 6.3 k/uL (1.3-7.7); Neutrophils % (A) 68 %; Platelet Count 200 k/uL (150-450); RBC 5.04 m/uL (4.30-5.90); RDW 13.2 % (11.5-15.5); WBC 9.4 k/uL (3.8-10.6)
[2020-01-31 23:40] LABS: ALT 34 U/L (4-49); AST 28 U/L (17-59); African American GFR (CKD) >90 (>60 ml/min/1.73 sqM); Albumin 4.3 g/dL (3.5-5.0); Alkaline Phosphatase 124 U/L (38-126); Anion Gap 7 mmol/L; Blood Urea Nitrogen 19 mg/dL (9-20); Calcium 9.9 mg/dL (8.4-10.2); Carbon Dioxide 24 mmol/L (22-30); Chloride 107 mmol/L (98-107); Glucose 111 mg/dL (74-99); Lithium 0.8 mmol/L; Non-African American GFR(CKD) >90 (>60 ml/min/1.73 sqM); Potassium 4.1 mmol/L (3.5-5.1); Sodium 138 mmol/L (137-145); Total Bilirubin 0.3 mg/dL (0.2-1.3); Total Protein 6.8 g/dL (6.3-8.2)
--- NOTE | 2020-01-31 23:50 | ED ---
Seizure HPI - General Chief Complaint: Seizure Stated Complaint: Poss Seizure Time Seen by Provider: 01/31/20 22:32 Source: patient Mode of arrival: ambulatory Limitations: physical limitation - History of Present Illness Initial Comments: This patient is a 29-year-old man who presents with concern that he thought he might have had a seizure. Patient has history of seizure disorder. He described having an episode where he formal with his phone and then nearly fell. There was no loss consciousness. There was no tonic-clonic movement. Patient states that currently he is feeling back to his baseline. MD Complaint: possible seizure -: hour(s) Description of Episode: other -: second(s) Trauma: No Seizure History: known seizure disorder Place: home Possible Precipitating Event: none Associated Symptoms: denies other symptoms - Related Data Home Medications Medication Instructions Recorded Confirmed cloZAPine [Clozaril] 100 mg PO BID 09/30/18 12/15/18 cloZAPine [Clozaril] 200 mg PO HS 09/30/18 12/15/18 [place] Carbonate 900 mg PO HS 12/05/18 12/15/18 Mirtazapine [Remeron] 45 mg PO HS 12/05/18 12/15/18 Mirtazapine [Remeron] 15 mg PO HS 12/15/18 12/15/18 Previous Rx's Medication Instructions Recorded Benztropine Mesylate [Cogentin] 1 mg PO DAILY #30 tab 09/28/18 Haloperidol Decanoate [Haldol D] 250 mg IM Q28D #1 vial 09/28/18 Imipramine HCl [Tofranil] 50 mg PO HS #30 tablet 09/28/18 cloNIDine HCL [Catapres] 0.1 mg PO HS #30 tab 09/28/18 Allergies Allergy/AdvReac Type Severity Reaction Status Date / Time divalproex sodium Allergy Severe Unknown Verified 01/31/20 22:11 [From Depakote] chocolate flavor AdvReac Rash/Hives Verified 01/31/20 22:11 Review of Systems ROS Statement: Those systems with pertinent positive or pertinent negative responses have been documented in the HPI. ROS Other: All systems not noted in ROS Statement are negative. Constitutional: Denies: fever, chills, weakness Eyes: Denies: vision change Respiratory: Denies: cough, dyspnea Cardiovascular: Denies: chest pain, palpitations, syncope Gastrointestinal: Denies: abdominal pain, vomiting, diarrhea Musculoskeletal: Denies: back pain Skin: Denies: rash Neurological: Reports: headache. Denies: weakness, numbness, paresthesias, conf usion Past Medical History Past Medical History: Neurologic Disorder, Seizure Disorder Additional Past Medical History / Comment(s): Developemental Disability, asperbergers,delayed speech,severe emotional impairment,explosive anger dis order.schizoaffective disorder History of Any Multi-Drug Resistant Organisms: None Reported Past Surgical History: No Surgical Hx Reported Past Anesthesia/Blood Transfusion Reactions: No Reported Reaction Past Psychological History: Anxiety, Depression, Schizoaffective Disorder, Schizophrenia Smoking Status: Current every day smoker Past Alcohol Use History: None Reported Past Drug Use History: None Reported General Exam Limitations: physical limitation General appearance: alert, in no apparent distress Head exam: Present: atraumatic, normocephalic Eye exam: Present: normal appearance, PERRL, EOMI. Absent: scleral icterus, conjunctival injection, nystagmus ENT exam: Present: normal oropharynx Respiratory exam: Present: normal lung sounds bilaterally. Absent: respiratory distress, wheezes, rales, rhonchi, stridor Cardiovascular Exam: Present: regular rate, normal rhythm, normal heart sounds. Absent: systolic murmur, diastolic murmur, rubs, gallop GI/Abdominal exam: Present: soft. Absent: tenderness Extremities exam: Present: normal inspection Neurological exam: Present: alert, oriented X3, CN II-XII intact. Absent: motor sensory deficit Skin exam: Present: warm, dry, intact, normal color. Absent: rash Course Vital Signs 01/31/20 02/01/20 22:08 00:10 Temperature 97.4 F L 98.2 F Pulse Rate 99 88 Respiratory 20 20 Rate Blood Pressure 139/90 117/77 O2 Sat by Pulse 99 98 Oximetry Medical Decision Making - Lab Data Result diagrams: 01/31/20 22:47 01/31/20 22:47 Lab Results 01/31/20 01/31/20 Range/Units 22:47 22:47 WBC 9.4 (3.8-10.6) k/uL RBC 5.04 (4.30-5.90) m/uL Hgb 15.4 (13.0-17.5) gm/dL Hct 47.4 (39.0-53.0) % MCV 93.9 (80.0-100.0) fL MCH 30.6 (25.0-35.0) pg MCHC 32.5 (31.0-37.0) g/dL RDW 13.2 (11.5-15.5) % Plt Count 200 (150-450) k/uL Neutrophils % 68 % Lymphocytes % 22 % Monocytes % 8 % Eosinophils % 0 % Basophils % 1 % Neutrophils # 6.3 (1.3-7.7) k/uL Lymphocytes # 2.1 (1.0-4.8) k/uL Monocytes # 0.8 (0-1.0) k/uL Eosinophils # 0.0 (0-0.7) k/uL Basophils # 0.1 (0-0.2) k/uL Sodium 138 (137-145) mmol/L Potassium 4.1 (3.5-5.1) mmol/L Chloride 107 (98-107) mmol/L Carbon Dioxide 24 (22-30) mmol/L Anion Gap 7 mmol/L BUN 19 (9-20) mg/dL Creatinine 0.94 (0.66-1.25) mg/dL Est GFR (CKD-EPI)AfAm >90 (>60 ml/min/1.73 sqM) Est GFR (CKD-EPI)NonAf >90 (>60 ml/min/1.73 sqM) Glucose 111 H (74-99) mg/dL Calcium 9.9 (8.4-10.2) mg/dL Total Bilirubin 0.3 (0.2-1.3) mg/dL AST 28 (17-59) U/L ALT 34 (4-49) U/L Alkaline Phosphatase 124 (38-126) U/L Total Protein 6.8 (6.3-8.2) g/dL Albumin 4.3 (3.5-5.0) g/dL [place] 0.8 mmol/L Disposition Clinical Impression: Feared condition not demonstrated Disposition: HOME SELF-CARE Condition: Good Instructions (If sedation given, give patient instructions): Recurrent Seizures in Adults (ED) Is patient prescribed a controlled substance at d/c from ED?: No Referrals: Rosendo Crouch MD [Primary Care Provider] - 1-2 days
[2020-02-01 00:12] VITALS: BP 117/77; PULSE 88; TEMP 98.2
== END 2020-02-01 00:10 | disposition home or self-care (01) ==
LOC: EC 22:06
DX: Z71.1 Person with feared health complaint in whom no diagnosis is made (principal); R51.9 Headache, unspecified; G40.909 Epilepsy, unspecified, not intractable, without status epilepticus; F79 Unspecified intellectual disabilities; F84.5 Asperger's syndrome; F41.9 Anxiety disorder, unspecified; F32.9 Major depressive disorder, single episode, unspecified; F25.9 Schizoaffective disorder, unspecified; F17.200 Nicotine dependence, unspecified, uncomplicated; Z79.899 Other long term (current) drug therapy; Z88.8 Allergy status to other drugs, medicaments and biological substances; Z91.018 Allergy to other foods
CPT/HCPCS: 36415; 80053; 80178; 85025; 99284

== ENCOUNTER 2020-05-03 00:35 | Emergency (ER) | payer MEDICARE, OTHER ==
--- NOTE | 2020-05-03 00:52 | ED ---
Extremity Problem HPI - General Stated complaint: LT knee injury Time Seen by Provider: 05/03/20 00:46 Source: RN notes reviewed, old records reviewed Limitations: no limitations - History of Present Illness Initial comments: This is a 29-year-old male status post trip and fall trip and fall resulting in left knee pain. Patient has swelling to the anterior aspect of his left patella. Patient has laboratory able to walk, able to bear weight. No other traumatic injury noted. Injury was obtained with patient's wishes knee between dresser and wall. Patient helped a neighbor move all day MD Complaint: extremity pain, joint pain, other (Left knee tenderness and swelling) -: hour(s) Location: left, knee History of Same: No Radiation: proximal Severity scale (1-10): 4 Quality: aching Consistency: intermittent Improves with: nothing Worsens with: nothing - Related Data Home Medications Medication Instructions Recorded Confirmed cloZAPine [Clozaril] 100 mg PO BID 09/30/18 12/15/18 cloZAPine [Clozaril] 200 mg PO HS 09/30/18 12/15/18 [place] Carbonate 900 mg PO HS 12/05/18 12/15/18 Mirtazapine [Remeron] 45 mg PO HS 12/05/18 12/15/18 Mirtazapine [Remeron] 15 mg PO HS 12/15/18 12/15/18 Previous Rx's Medication Instructions Recorded Benztropine Mesylate [Cogentin] 1 mg PO DAILY #30 tab 09/28/18 Haloperidol Decanoate [Haldol D] 250 mg IM Q28D #1 vial 09/28/18 Imipramine HCl [Tofranil] 50 mg PO HS #30 tablet 09/28/18 cloNIDine HCL [Catapres] 0.1 mg PO HS #30 tab 09/28/18 Allergies Allergy/AdvReac Type Severity Reaction Status Date / Time divalproex sodium Allergy Severe Unknown Verified 01/31/20 22:11 [From Depakote] chocolate flavor AdvReac Rash/Hives Verified 01/31/20 22:11 Review of Systems ROS Statement: Those systems with pertinent positive or pertinent negative responses have been documented in the HPI. ROS Other: All systems not noted in ROS Statement are negative. Past Medical History Past Medical History: Neurologic Disorder, Seizure Disorder Additional Past Medical History / Comment(s): Developemental Disability, asperbergers,delayed speech,severe emotional impairment,explosive anger disorder.schizoaffective disorder History of Any Multi-Drug Resistant Organisms: None Reported Past Surgical History: No Surgical Hx Reported Past Anesthesia/Blood Transfusion Reactions: No Reported Reaction Past Psychological History: Anxiety, Depression, Schizoaffective Disorder, Schizophrenia Smoking Status: Current every day smoker Past Alcohol Use History: None Reported Past Drug Use History: None Reported General Exam General appearance: alert, in no apparent distress Head exam: Present: atraumatic, normocephalic, normal inspection Eye exam: Present: normal appearance, PERRL, EOMI. Absent: scleral icterus, conjunctival injection, periorbital swelling ENT exam: Present: normal exam, mucous membranes moist Neck exam: Present: normal inspection. Absent: tenderness, meningismus, lymphadenopathy Respiratory exam: Present: normal lung sounds bilaterally. Absent: respiratory distress, wheezes, rales, rhonchi, stridor Cardiovascular Exam: Present: regular rate, normal rhythm, normal heart sounds. Absent: systolic murmur, diastolic murmur, rubs, gallop, clicks GI/Abdominal exam: Present: soft, normal bowel sounds. Absent: distended, tenderness, guarding, rebound, rigid Extremities exam: Present: normal inspection, full ROM, normal capillary refill, other (Left knee is swollen with some anterior bruising, full range of motion noted). Absent: tenderness, pedal edema, joint swelling, calf tenderness Back exam: Present: normal inspection Neurological exam: Present: alert, oriented X3, CN II-XII intact Psychiatric exam: Present: normal affect, normal mood Skin exam: Present: warm, dry, intact, normal color. Absent: rash Course Vital Signs 05/03/20 01:09 Temperature 97.8 F Pulse Rate 102 H Respiratory 22 Rate Blood Pressure 141/94 O2 Sat by Pulse 99 Oximetry - Reevaluation(s) Reevaluation #1: 05/03/20 02:05 Medical record is reviewed Reevaluation #2: 05/03/20 02:05 Patient no significant pain although improved with Motrin Tylenol, patient is a laboratory Medical Decision Making - Medical Decision Making 29 male to the ER for evaluation of left knee bruising. Patient can be discharged home Disposition Clinical Impression: Contusion of left knee, Fall Disposition: HOME SELF-CARE Condition: Good Instructions (If sedation given, give patient instructions): Knee Pain (ED) Is patient prescribed a controlled substance at d/c from ED?: No Referrals: Rosendo Crouch MD [Primary Care Provider] - 1-2 days
[2020-05-03] MEDS ORDERED: ACETAMINOPHEN TAB 500 MG TAB PO STA (00:56)
[2020-05-03] MEDS ORDERED: IBUPROFEN 800 MG TAB PO STA (00:56)
--- NOTE | 2020-05-03 01:49 | XR ---
EXAM: XR Left Knee, 3 Views CLINICAL HISTORY: ITS.REASON XR Reason: pain TECHNIQUE: Three views of the left knee. COMPARISON: No relevant prior studies available. FINDINGS: Bones/joints: Unremarkable. No acute fracture. No dislocation. Soft tissues: Soft tissue swelling over the anterior aspect of the proximal tibia. IMPRESSION: Soft tissue swelling over the anterior aspect of the proximal tibia. No acute fracture or dislocation is seen.
[2020-05-03 02:15] VITALS: BP 125/78; PULSE 98; RESP 16; TEMP 97.1
== END 2020-05-03 02:22 | disposition home or self-care (01) ==
LOC: EC 00:35
DX: S80.02XA Contusion of left knee, initial encounter (principal); F17.200 Nicotine dependence, unspecified, uncomplicated; F41.9 Anxiety disorder, unspecified; F32.9 Major depressive disorder, single episode, unspecified; F25.9 Schizoaffective disorder, unspecified; F80.89 Other developmental disorders of speech and language; G40.909 Epilepsy, unspecified, not intractable, without status epilepticus; Z79.899 Other long term (current) drug therapy; Z88.8 Allergy status to other drugs, medicaments and biological substances; Z91.018 Allergy to other foods; W01.0XXA Fall on same level from slipping, tripping and stumbling without subsequent striking against object, initial encounter; Y93.89 Activity, other specified
CPT/HCPCS: 99284

== ENCOUNTER 2020-11-28 23:19 | Emergency (ER) | payer MEDICARE, OTHER ==
[2020-11-28 23:25] VITALS: BP 123/83; PULSE 94; RESP 22; TEMP 97.7
--- NOTE | 2020-11-29 01:08 | ED ---
Psych HPI - General Chief Complaint: Psychiatric Symptoms Stated Complaint: Mental health Time Seen by Provider: 11/28/20 23:27 Source: patient Mode of arrival: ambulatory - History of Present Illness Initial Comments: Patient is a 30-year-old male with history of developmental delay, Asperger's, mental illness, presenting to the emergency Department with complaints of feeling depressed. He states that the anniversary of his sister's and he gets depressed with this. He states he wanted to talk to somebody about it. He denies any suicide or homicidal thoughts. His mother is here with him now. He denies any chest patient's breath, no nausea or vomiting. He has no further complaints, his vitals are stable. - Related Data Home Medications Medication Instructions Recorded Confirmed cloZAPine [Clozaril] 100 mg PO BID 09/30/18 12/15/18 cloZAPine [Clozaril] 200 mg PO HS 09/30/18 12/15/18 [place] Carbonate 900 mg PO HS 12/05/18 12/15/18 Mirtazapine [Remeron] 45 mg PO HS 12/05/18 12/15/18 Mirtazapine [Remeron] 15 mg PO HS 12/15/18 12/15/18 Previous Rx's Medication Instructions Recorded Benztropine Mesylate [Cogentin] 1 mg PO DAILY #30 tab 09/28/18 Haloperidol Decanoate [Haldol D] 250 mg IM Q28D #1 vial 09/28/18 Imipramine HCl [Tofranil] 50 mg PO HS #30 tablet 09/28/18 cloNIDine HCL [Catapres] 0.1 mg PO HS #30 tab 09/28/18 Allergies Allergy/AdvReac Type Severity Reaction Status Date / Time divalproex sodium Allergy Severe Unknown Verified 11/28/20 23:25 [From Depakote] chocolate flavor AdvReac Rash/Hives Verified 11/28/20 23:25 Review of Systems ROS Statement: Those systems with pertinent positive or pertinent negative responses have been documented in the HPI. ROS Other: All systems not noted in ROS Statement are negative. Past Medical History Past Medical History: Neurologic Disorder, Seizure Disorder Additional Past Medical History / Comment(s): Developemental Disability, asperbe rgers,delayed speech,severe emotional impairment,explosive anger disorder.schizoaffective disorder History of Any Multi-Drug Resistant Organisms: None Reported Past Surgical History: No Surgical Hx Reported Past Anesthesia/Blood Transfusion Reactions: No Reported Reaction Past Psychological History: Anxiety, Depression, Schizoaffective Disorder, Schizophrenia Smoking Status: Current every day smoker Past Alcohol Use History: None Reported Past Drug Use History: None Reported General Exam - General Exam Comments Initial Comments: GENERAL: Patient is well-developed and well-nourished. Patient is nontoxic and in no acute distress. HEAD: Atraumatic, normocephalic. EYES: Pupils equal round and reactive to light, extraocular movements intact, sclera anicteric, conjunctiva are normal. Eyelids were unremarkable. LUNGS: Unlabored respirations. Breath sounds clear to auscultation bilaterally and equal. No wheezes rales or rhonchi. HEART: Regular rate and rhythm without murmurs, rubs or gallops. ABDOMEN: Soft, nontender, normoactive bowel sounds. No guarding, no rebound. No masses appreciated. : Deferred MUSCULOSKELETAL: Normal extremities with adequate strength and normal range of motion, no pitting or edema. No clubbing or cyanosis. NEUROLOGICAL: Patient is alert and oriented x 3. PSYCH: Normal mood, normal affect. SKIN: Warm, Dry, normal turgor, no rashes or lesions noted. Limitations: no limitations Course Vital Signs 11/28/20 23:21 Temperature 97.7 F Pulse Rate 94 Respiratory 22 Rate Blood Pressure 123/83 O2 Sat by Pulse 97 Oximetry Medical Decision Making - Medical Decision Making Patient is a 30-year-old male here for psych evaluation. He states he's been feeling depressed over his sister's and wants somebody to talk to, no suicidal or homicidal thoughts. He does have history of mental illness. Patient was evaluated by EPS, he is stable to go home. States he plans in place. He'll follow up with his counselors. Discussed with Dr. Tsang. Disposition Clinical Impression: Depression Disposition: HOME SELF-CARE Condition: Stable Instructions (If sedation given, give patient instructions): Depression (ED) Additional Instructions: Please return to the Emergency Department if symptoms worsen or any other concerns. Please follow up with your counselor. Is patient prescribed a controlled substance at d/c from ED?: No Referrals: Rosendo Crouch MD [Primary Care Provider] - 1-2 days Time of Disposition: 01:08
== END 2020-11-29 01:11 | disposition home or self-care (01) ==
LOC: EC 23:19
DX: F32.9 Major depressive disorder, single episode, unspecified (principal); F17.200 Nicotine dependence, unspecified, uncomplicated; G40.909 Epilepsy, unspecified, not intractable, without status epilepticus; Z88.8 Allergy status to other drugs, medicaments and biological substances; Z91.02 Food additives allergy status; Z79.899 Other long term (current) drug therapy
CPT/HCPCS: 82075; 99283

== ENCOUNTER 2020-12-01 20:43 | Emergency (ER) | payer MEDICARE, OTHER ==
[2020-12-01 21:41] VITALS: BP 132/80; PULSE 89; RESP 20; TEMP 98.3
[2020-12-01] MEDS ORDERED: diphenhydrAMINE 25 MG CAP PO STA (22:11)
--- NOTE | 2020-12-01 22:12 | ED ---
General Adult HPI - General Chief complaint: Animal Bite Stated complaint: bee sting Time Seen by Provider: 12/01/20 22:07 Source: patient Mode of arrival: ambulatory Limitations: no limitations - History of Present Illness Initial comments: 30-year-old male patient who is developmentally disabled presents with his mother for evaluation after being stung in the mouth by a bee. States it was a yellow jacket. States he was drinking a pop when the bee stung him in the cheek and then flew out of his mouth. Patient states he was having some discomfort to the area but is not feeling better. Denies any swelling to the mouth, tongue, or throat. Denies fever or chills. Denies any rash or itching. Denies taking any medication for his symptoms. States he now feels well. Denies known bee ALLERGY. - Related Data Home Medications Medication Instructions Recorded Confirmed cloZAPine [Clozaril] 100 mg PO BID 09/30/18 12/15/18 cloZAPine [Clozaril] 200 mg PO HS 09/30/18 12/15/18 [place] Carbonate 900 mg PO HS 12/05/18 12/15/18 Mirtazapine [Remeron] 45 mg PO HS 12/05/18 12/15/18 Mirtazapine [Remeron] 15 mg PO HS 12/15/18 12/15/18 Previous Rx's Medication Instructions Recorded Benztropine Mesylate [Cogentin] 1 mg PO DAILY #30 tab 09/28/18 Haloperidol Decanoate [Haldol D] 250 mg IM Q28D #1 vial 09/28/18 Imipramine HCl [Tofranil] 50 mg PO HS #30 tablet 09/28/18 cloNIDine HCL [Catapres] 0.1 mg PO HS #30 tab 09/28/18 Allergies Allergy/AdvReac Type Severity Reaction Status Date / Time divalproex sodium Allergy Severe Unknown Verified 12/01/20 21:41 [From Depakote] chocolate flavor AdvReac Rash/Hives Verified 12/01/20 21:41 Review of Systems ROS Statement: Those systems with pertinent positive or pertinent negative responses have been documented in the HPI. ROS Other: All systems not noted in ROS Statement are negative. Past Medical History Past Medical History: Neurologic Disorder, Seizure Disorder Additional Past Medical History / Comment(s): Developemental Disability, asperbergers,delayed speech,severe emotional impairment,explosive anger disorder.schizoaffective disorder History of Any Multi-Drug Resistant Organisms: None Reported Past Surgical History: No Surgical Hx Reported Past Anesthesia/Blood Transfusion Reactions: No Reported Reaction Past Psychological History: Anxiety, Depression, Schizoaffective Disorder, Schizophrenia Smoking Status: Current every day smoker Past Alcohol Use History: None Reported Past Drug Use History: None Reported General Exam Limitations: no limitations General appearance: alert, in no apparent distress Eye exam: Present: normal appearance, PERRL, EOMI. Absent: scleral icterus, conjunctival injection, periorbital swelling ENT exam: Present: normal exam, normal oropharynx, mucous membranes moist Respiratory exam: Present: normal lung sounds bilaterally. Absent: respiratory distress, wheezes, rales, rhonchi, stridor Cardiovascular Exam: Present: regular rate, normal rhythm, normal heart sounds. Absent: systolic murmur, diastolic murmur, rubs, gallop, clicks GI/Abdominal exam: Present: soft, normal bowel sounds. Absent: distended, tenderness, guarding, rebound, rigid Neurological exam: Present: alert, oriented X3, CN II-XII intact Psychiatric exam: Present: normal affect, normal mood Skin exam: Present: warm, dry, intact, normal color. Absent: rash Course Vital Signs 12/01/20 21:37 Temperature 98.3 F Pulse Rate 89 Respiratory 20 Rate Blood Pressure 132/80 O2 Sat by Pulse 97 Oximetry Medical Decision Making - Medical Decision Making 30-year-old male patient presents to the emergency department today for evaluation after being stung in the mouth by a bee. Physical examination is unremarkable. No lip, tongue, or throat swelling. Vital signs within normal range. He was given dose of Benadryl. He'll be discharged with instructions to take Benadryl every 6 hours as needed. Instructed to follow up this primary care physician for recheck in 1-2 days. Return parameters were discussed in detail. My attending is Dr. Cabrera. Disposition Clinical Impression: Bee sting Disposition: HOME SELF-CARE Condition: Good Instructions (If sedation given, give patient instructions): Insect Bite or Sting (ED) Additional Instructions: Follow up with your primary care physician for recheck in 1-2 days. Return to the emergency department for any new, worsening, or concerning symptoms. Is patient prescribed a controlled substance at d/c from ED?: No Referrals: Bazo,Charbal B, MD [Primary Care Provider] - 1-2 days Time of Disposition: 22:12
== END 2020-12-01 22:21 | disposition home or self-care (01) ==
LOC: EC 20:43
DX: T63.441A Toxic effect of venom of bees, accidental (unintentional), initial encounter (principal); F17.200 Nicotine dependence, unspecified, uncomplicated; Z91.018 Allergy to other foods; Z88.8 Allergy status to other drugs, medicaments and biological substances
CPT/HCPCS: 99282

== ENCOUNTER 2021-01-19 19:34 | Emergency (ER) | payer OTHER, MEDICARE ==
[2021-01-19 19:45] VITALS: RESP 18
[2021-01-19 20:19] LABS: Glucose,Whole Blood 124 mg/dL (75-99)
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
[2021-01-19 20:32] LABS: Basophils # (A) 0.1 k/uL (0-0.2); Basophils % (A) 1 %; Eosinophils % (A) 0 %; HCT 45.4 % (39.0-53.0); HGB 14.9 gm/dL (13.0-17.5); Lymphocytes # (A) 1.9 k/uL (1.0-4.8); Lymphocytes % (A) 22 %; MCH 31.3 pg (25.0-35.0); MCHC 32.8 g/dL (31.0-37.0); MCV 95.6 fL (80.0-100.0); Mean Platelet Volume 7.7; Monocytes # (A) 0.9 k/uL (0-1.0); Monocytes % (A) 10 %; Neutrophils # (A) 5.5 k/uL (1.3-7.7); Neutrophils % (A) 64 %; Platelet Count 254 k/uL (150-450); RBC 4.75 m/uL (4.30-5.90); RDW 13.2 % (11.5-15.5); WBC 8.6 k/uL (3.8-10.6)
[2021-01-19 20:43] LABS: INR 0.9 (<1.2); Partial Thromboplastin Time 22.2 sec (22.0-30.0); Prothrombin Time 9.9 sec (9.0-12.0)
[2021-01-19 20:45] LABS: ALT 20 U/L (4-49); AST 21 U/L (17-59); African American GFR (CKD) >90 (>60 ml/min/1.73 sqM); Albumin 4.3 g/dL (3.5-5.0); Alcohol <10 mg/dL; Alkaline Phosphatase 139 U/L (38-126); Anion Gap 8 mmol/L; Blood Urea Nitrogen 12 mg/dL (9-20); Calcium 10.1 mg/dL (8.4-10.2); Carbon Dioxide 24 mmol/L (22-30); Chloride 107 mmol/L (98-107); Glucose 117 mg/dL (74-99); Non-African American GFR(CKD) >90 (>60 ml/min/1.73 sqM); Potassium 4.2 mmol/L (3.5-5.1); Sodium 139 mmol/L (137-145); Total Bilirubin 0.4 mg/dL (0.2-1.3)
[2021-01-19 20:58] LABS: Appearance,Urine Clear (Clear); Bilirubin,Urine Negative (Negative); Blood,Urine Negative (Negative); Color,Urine Light Yellow; Glucose,Urine (UA) Negative (Negative); Ketones,Urine Negative (Negative); Leukocyte Esterase,Urine Negative (Negative); Nitrite,Urine Negative (Negative); Protein,Urine Negative (Negative); Specific Gravity,Urine 1.004 (1.001-1.035); Urobilinogen,Urine <2.0 mg/dL (<2.0)
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
[2021-01-19 21:08] LABS: Amphetamine Screen,Urine Not Detected (NotDetected); Barbiturate Screen,Urine Not Detected (NotDetected); Benzodiazepines Screen,Urine Not Detected (NotDetected); Cocaine Screen,Urine Not Detected (NotDetected); Methadone Screen, Urine Not Detected (NotDetected); Opiate Screen,Urine Not Detected (NotDetected); Oxycodone Screen, Urine Not Detected (NotDetected); Phencyclidine Screen,Urine Not Detected (NotDetected); Tricyclic Antidepressant,Urine Not Detected (NotDetected); Urn Cannabinoid Scrn Not Detected (NotDetected)
[2021-01-19 23:02] VITALS: BP 120/81; PULSE 76; TEMP 97.6
== END 2021-01-19 22:50 | disposition home or self-care (01) ==
LOC: EC 19:34
DX: M25.552 Pain in left hip (principal); F17.200 Nicotine dependence, unspecified, uncomplicated; F25.9 Schizoaffective disorder, unspecified; Z79.899 Other long term (current) drug therapy; Z88.8 Allergy status to other drugs, medicaments and biological substances; Z91.02 Food additives allergy status; V03.10XA Pedestrian on foot injured in collision with car, pick-up truck or van in traffic accident, initial encounter; Y93.01 Activity, walking, marching and hiking; Y92.410 Unspecified street and highway as the place of occurrence of the external cause
CPT/HCPCS: 36415; 70450; 71045; 72125; 72170; 80053; 80306; 80320; 81003; 84484; 85025; 85610; 85730; 86850; 86900; 86901; 99284

== ENCOUNTER 2022-02-27 15:51 | Emergency (ER) | payer MEDICARE, OTHER ==
[2022-02-27 15:56] VITALS: BP 135/89; PULSE 88; RESP 20; TEMP 98.1
[2022-02-27] MEDS ORDERED: PROPARACAINE 0.5% OPHTH DROPS 15 ML BTL RIGHT EYE STA (16:08)
[2022-02-27] MEDS ORDERED: FLUORESCEIN STRIPS 1 MG STRIP RIGHT EYE ONE (16:08)
[2022-02-27] MEDS ORDERED: ERYTHROMYCIN 5 MG/GM OPHTH OINT 3.5 GM TUBE RIGHT EYE STA (17:09)
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
== END 2022-02-27 17:37 | disposition home or self-care (01) ==
LOC: EC 15:51
DX: S05.01XA Injury of conjunctiva and corneal abrasion without foreign body, right eye, initial encounter (principal); F32.A Depression, unspecified; F41.9 Anxiety disorder, unspecified; F17.200 Nicotine dependence, unspecified, uncomplicated; Z91.018 Allergy to other foods; Z88.1 Allergy status to other antibiotic agents; W54.1XXA Struck by dog, initial encounter
CPT/HCPCS: 99283

== ENCOUNTER 2023-02-21 17:41 | Emergency (ER) | payer MEDICARE, OTHER ==
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
--- NOTE | 2023-02-21 19:41 | ED ---
General Adult HPI - General Chief complaint: Extremity Injury, Upper Stated complaint: fall left arm injury Time Seen by Provider: 02/21/23 18:25 Source: patient, family, RN notes reviewed, old records reviewed Mode of arrival: ambulatory Limitations: no limitations - History of Present Illness Initial comments: This is a 32-year-old male whose mother brought him into the emergency department because he fell onto his left arm was complaining of some forearm pain. Patient denies any head or neck pain patient has a chest or back pain patient denies any other injury at this time. Patient has no open wounds - Related Data Home Medications Medication Instructions Recorded Confirmed cloZAPine [Clozaril] 100 mg PO BID 09/30/18 12/15/18 cloZAPine [Clozaril] 200 mg PO HS 09/30/18 12/15/18 [place] Carbonate 900 mg PO HS 12/05/18 12/15/18 Mirtazapine [Remeron] 45 mg PO HS 12/05/18 12/15/18 Mirtazapine [Remeron] 15 mg PO HS 12/15/18 12/15/18 Previous Rx's Medication Instructions Recorded Benztropine Mesylate [Cogentin] 1 mg PO DAILY #30 tab 09/28/18 Haloperidol Decanoate [Haldol D] 250 mg IM Q28D #1 vial 09/28/18 Imipramine HCl [Tofranil] 50 mg PO HS #30 tablet 09/28/18 cloNIDine HCL [Catapres] 0.1 mg PO HS #30 tab 09/28/18 Erythromycin Ophth Oint [Romycin 1 applic RIGHT EYE QID 7 Days #3.5 02/27/22 Ophth Oint] gm Allergies Allergy/AdvReac Type Severity Reaction Status Date / Time divalproex sodium Allergy Severe Unknown Verified 02/27/22 15:56 [From Depakote] chocolate flavor AdvReac Rash/Hives Verified 02/27/22 15:56 Review of Systems ROS Statement: Those systems with pertinent positive or pertinent negative responses have been documented in the HPI. ROS Other: All systems not noted in ROS Statement are negative. Past Medical History Past Medical History: Neurologic Disorder, Seizure Disorder Additional Past Medical History / Comment(s): Developemental Disability, asperbergers,delayed speech,severe emotional impairment,explosive anger disorder.schizoaffective disorder History of Any Multi-Drug Resistant Organisms: None Reported Past Surgical History: No Surgical Hx Reported Past Anesthesia/Blood Transfusion Reactions: No Reported Reaction Past Psychological History: Anxiety, Depression, Schizoaffective Disorder, Schizophrenia Smoking Status: Current every day smoker Past Alcohol Use History: None Reported Past Drug Use History: None Reported General Exam - General Exam Comments Initial Comments: GENERAL Patient is well-developed and well-nourished. Patient is in mild distress. EYES Patient's pupils are equal and round. Extraocular motion is intact SKIN Unremarkable NEURO The patient is alert and oriented 3 PYSCH Patient has normal interpersonal interactions. MUSCULOSKELETAL Patient has no tenderness in the humerus or the elbow or the forearm wrist or hand. Limitations: no limitations Course Vital Signs 02/21/23 18:22 Temperature 998 F H Pulse Rate 97 Respiratory 16 Rate Blood Pressure 154/90 O2 Sat by Pulse 98 Oximetry Medical Decision Making - Medical Decision Making Was pt. sent in by a medical professional or institution (, PA, STEEL DIE PRESS SET UP OPERATOR, urgent care, hospital, or [place] [facility] facility...) When possible be specific @ -[No] Did you speak to anyone other than the patient for history (EMS, parent, family, police, friend...)? What history was obtained from this source @ -Mother gave most of the history Did you review nursing and triage notes (agree or disagree)? Why? @ -[I reviewed and agree with nursing and triage notes] Were old charts reviewed (outside hosp., previous admission, EMS record, old EKG, old radiological studies, urgent care reports/EKG's, [place] [facility] facility records)? Report findings @ -[No old charts were reviewed] Differential Diagnosis (chest pain, altered mental status, abdominal pain women, abdominal pain men, vaginal bleeding, weakness, fever, dyspnea, syncope, headache, dizziness, GI bleed, back pain, seizure, CVA, palpatations, mental health, musculoskeletal)? @ -Differential Musculoskeletal Muscular strain, contusion, ligament sprain, fracture, arthritis, septic arthritis, bursitis, cellulitis, muscle spasm, nerve compression, DVT, arterial occlusion, herpes zoster, electrolyte abnormality, tumor.... This is not meant to be in all inclusive list EKG interpreted by me (3pts min.). @ -[As above] X-rays interpreted by me (1pt min.). @ -Warm showed no acute abnormality CT interpreted by me (1pt min.). @ -[None done] U/S interpreted by me (1pt. min.). @ -[None done] What testing was considered but not performed or refused? (CT, X-rays, U/S, labs)? Why? @ -[None] What meds were considered but not given or refused? Why? @ -[None] Did you discuss the management of the patient with other professionals (professionals i.e. Dr., PA, STEEL DIE PRESS SET UP OPERATOR, lab, RT, psych nurse, social services aide, military lawyer, teacher, adult parole officer, hospice case manager)? Give summary @ -[No] Was smoking cessation discussed for >3mins.? @ -[No] Was critical care preformed (if so, how long)? @ -[No] Were there social determinants of health that impacted care today? How? (Homelessness, low income, unemployed, alcoholism, drug addiction, transportation, low edu. Level, literacy, decrease access to med. care, detention, rehab)? @ -[No] Was there de-escalation of care discussed even if they declined (Discuss DNR or withdrawal of care, Hospice)? DNR status @ -[No] What co-morbidities impacted this encounter? (DM, HTN, Smoking, COPD, CAD, Cancer, CVA, ARF, Chemo, Hep., AIDS, mental health diagnosis, sleep apnea, morbid obesity)? @ -[None] Was patient admitted / discharged? Hospital course, mention meds given and route, prescriptions, significant lab abnormalities, going to OR and other pertinent info. @ -I evaluated the patient 2 different occasions I could not find any area of tenderness and full range of motion of the shoulder elbow wrist and hand. Mom w as in agreement that he had no tenderness at this time Undiagnosed new problem with uncertain prognosis? @ -[No] Drug Therapy requiring intensive monitoring for toxicity (Heparin, Nitro, Insulin, Cardizem)? @ -[No] Were any procedures done? @ -[No] Diagnosis/symptom? @ -Forearm contusion Acute, or Chronic, or Acute on Chronic? @ -Acute Uncomplicated (without systemic symptoms) or Complicated (systemic symptoms)? @ -Uncomplicated Side effects of treatment? @ -[No] Exacerbation, Progression, or Severe Exacerbation? @ -[No] Poses a threat to life or bodily function? How? (Chest pain, [place], [place], pneumonia, PE, COPD, DKA, ARF, appy, cholecystitis, CVA, Diverticulitis, Homicidal, Suicidal, threat to staff... and all critical care pts) @ -[No] Disposition Clinical Impression: Contusion, forearm Disposition: HOME SELF-CARE Condition: Good Instructions (If sedation given, give patient instructions): Contusion in Adults (ED) Is patient prescribed a controlled substance at d/c from ED?: No Referrals: Rosendo Crouch MD [Primary Care Provider] - 1-2 days Time of Disposition: 19:41
[2023-02-21 19:56] VITALS: BP 149/67; PULSE 91; RESP 20; TEMP 98.9
== END 2023-02-21 19:52 | disposition home or self-care (01) ==
LOC: EC 17:41
DX: S50.12XA Contusion of left forearm, initial encounter (principal); F41.9 Anxiety disorder, unspecified; F32.A Depression, unspecified; F17.200 Nicotine dependence, unspecified, uncomplicated; Z88.8 Allergy status to other drugs, medicaments and biological substances; Z79.899 Other long term (current) drug therapy; W18.30XA Fall on same level, unspecified, initial encounter
CPT/HCPCS: 99284

== ENCOUNTER 2023-11-23 14:29 | Emergency (ER) | payer MEDICARE, OTHER ==
[2023-11-23] MEDS ORDERED: BENZONATATE 100 MG CAP PO ONE (15:10)
[2023-11-23] MEDS ORDERED: IPRATROPIUM-ALBUTEROL 3 ML NEB ONE (15:42)
--- NOTE | 2024-01-15 13:28 | XR ---
Patient: Danial Andujar Ordering Physician: Unknown, Unknown ID: [id number] Phone, Pager: Phone: N/A Pager: N/A : 1990 Age/Gender: 33Y, M Primary Location: N/A Procedure: XR chest 2V Study Date : 11/23/2023 4:34:42 PM EXAMINATION TYPE: XR chest 2V DATE OF EXAM: 12/10/2023 11:24 AM CLINICAL INDICATION: Cough COMPARISON: Chest radiographs from 01/19/2021 TECHNIQUE: XR chest 2V Frontal view of the chest. FINDINGS: Lungs/Pleura: Subtle opacities in the right middle lobe suggested There is no evidence of pleural eff usion, focal consolidation, or pneumothorax. Pulmonary vascularity: Unremarkable. Heart/mediastinum: Cardiomediastinal silhouette is unremarkable. Musculoskeletal: No acute osseous pathology. IMPRESSION: Right middle lobe airspace opacities correlate for pneumonia
== END 2023-11-23 18:55 | disposition home or self-care (01) ==
LOC: EC 14:29
CPT/HCPCS: 71046; 93005; 99285; 99406

== ENCOUNTER 2024-01-29 13:44 | Emergency (ER) | payer MEDICARE, OTHER ==
[2024-01-29 14:00] VITALS: RESP 18
--- NOTE | 2024-01-29 16:11 | XR ---
EXAMINATION TYPE: XR chest 2V DATE OF EXAM: 01/29/2024 COMPARISON: 11/23/2023 HISTORY: Cough and chest pain TECHNIQUE: Frontal and lateral views of the chest are obtained. FINDINGS: There is no focal air space opacity, pleural effusion, or pneumothorax seen. The cardiac silhouette size is within normal limits. The osseous structures are intact. IMPRESSION: No acute cardiopulmonary process. [facility], Workstation: [id number] 01/29/2024 4:09 PM
[2024-01-29 16:31] VITALS: BP 128/88; PULSE 97; TEMP 98.3
--- NOTE | 2024-01-29 19:29 | ED ---
URI HPI - General Chief Complaint: Upper Respiratory Infection Stated Complaint: cough Time Seen by Provider: 01/29/24 13:59 Source: patient, RN notes reviewed Mode of arrival: ambulatory Limitations: no limitations - History of Present Illness Initial Comments: This is a 33-year-old male presenting with mother for presents persistent cough and associated shortness of breath x 2 days. Patient endorses ongoing cough for over 2 weeks with associated pain in left side while coughing. Endorses some relief with cough syrup and cough drops. Denies fever, chills, constant chest pain, wheezing, abdominal pain, N/V/D. MD Complaint: cough Onset/Timin -: days(s) - Related Data Home Medications Medication Instructions Recorded Confirmed cloZAPine [Clozaril] 100 mg PO BID 09/30/18 12/15/18 cloZAPine [Clozaril] 200 mg PO HS 09/30/18 12/15/18 [place] Carbonate 900 mg PO HS 12/05/18 12/15/18 Mirtazapine [Remeron] 45 mg PO HS 12/05/18 12/15/18 Mirtazapine [Remeron] 15 mg PO HS 12/15/18 12/15/18 Previous Rx's Medication Instructions Recorded Benztropine Mesylate [Cogentin] 1 mg PO DAILY #30 tab 09/28/18 Haloperidol Decanoate [Haldol D] 250 mg IM Q28D #1 vial 09/28/18 Imipramine HCl [Tofranil] 50 mg PO HS #30 tablet 09/28/18 cloNIDine HCL [Catapres] 0.1 mg PO HS #30 tab 09/28/18 Erythromycin Ophth Oint [Romycin 1 applic RIGHT EYE QID 7 Days #3.5 02/27/22 Ophth Oint] gm Benzonatate [Tessalon Perle] 200 mg PO RT-Q8H #15 cap 01/29/24 methylPREDNISolone Dose Pack 4 mg PO DIRECTED #1 packet 01/29/24 [Medrol Dose Pack] Allergies Allergy/AdvReac Type Severity Reaction Status Date / Time divalproex sodium Allergy Severe Unknown Verified 01/29/24 13:59 [From Depakote] chocolate flavor AdvReac Rash/Hives Verified 01/29/24 13:59 Review of Systems ROS Statement: Those systems with pertinent positive or pertinent negative responses have been documented in the HPI. ROS Other: All systems not noted in ROS Statement are negative. Past Medical History Past Medical History: Neurologic Disorder, Seizure Disorder Additional Past Medical History / Comment(s): Developemental Disability, asperbergers,delayed speech,severe emotional impairment,explosive anger disorder.schizoaffective disorder History of Any Multi-Drug Resistant Organisms: None Reported Past Surgical History: No Surgical Hx Reported Past Anesthesia/Blood Transfusion Reactions: No Reported Reaction Past Psychological History: Anxiety, Depression, Schizoaffective Disorder, Schizophrenia Smoking Status: Current every day smoker Past Alcohol Use History: None Reported Past Drug Use History: None Reported General Exam Limitations: no limitations General appearance: alert, in no apparent distress Head exam: Present: atraumatic, normocephalic, normal inspection Eye exam: Present: normal appearance, PERRL, EOMI. Absent: scleral icterus, conjunctival injection, periorbital swelling ENT exam: Present: normal exam, mucous membranes moist Neck exam: Present: normal inspection. Absent: tenderness, meningismus, lymphadenopathy Respiratory exam: Present: normal lung sounds bilaterally. Absent: respiratory distress, wheezes, rales, rhonchi, stridor Cardiovascular Exam: Present: regular rate, normal rhythm, normal heart sounds. Absent: systolic murmur, diastolic murmur, rubs, gallop, clicks GI/Abdominal exam: Present: soft, normal bowel sounds. Absent: distended, tenderness, guarding, rebound, rigid Extremities exam: Present: normal inspection, full ROM, normal capillary refill. Absent: tenderness, pedal edema, joint swelling, calf tenderness Back exam: Present: normal inspection Neurological exam: Present: alert, oriented X3, CN II-XII intact Psychiatric exam: Present: normal affect, normal mood Skin exam: Present: warm, dry, intact, normal color. Absent: rash Course Vital Signs 01/29/24 01/29/24 13:55 16:29 Temperature 98.1 F 98.3 F Pulse Rate 91 97 Respiratory 18 18 Rate Blood Pressure 109/79 128/88 O2 Sat by Pulse 99 98 Oximetry Medical Decision Making - Medical Decision Making Was pt. sent in by a medical professional or institution (, PA, DAMPER MAKER, urgent care, hospital, or intermediate...) When possible be specific @ -No Did you speak to anyone other than the patient for history (EMS, parent, family, police, friend...)? What history was obtained from this source @ -No Did you review nursing and triage notes (agree or disagree)? Why? @ -I reviewed and agree with nursing and triage notes Were old charts reviewed (outside hosp., previous admission, EMS record, old EKG, old radiological studies, urgent care reports/EKG's, intermediate records)? Report findings @ -No old charts were reviewed Differential Diagnosis (chest pain, altered mental status, abdominal pain women, abdominal pain men, vaginal bleeding, weakness, fever, dyspnea, syncope, headache, dizziness, GI bleed, back pain, seizure, CVA, palpatations, mental health, musculoskeletal)? @ -Differential Dyspnea: Coronary syndrome, arrhythmia, tamponade, asthma, COPD, pulmonary embolism, pneumonia, pneumothorax, pulmonary effusion, anaphylaxis, diabetic ketoacidosis, flailed chest, pulmonary contusion, diaphragmatic rupture, anemia, neuromuscular, this is not meant to be an all-inclusive list. EKG interpreted by me (3pts min.). @ -Not done X-rays interpreted by me (1pt min.). @ -Chest x-ray reveals no focal infiltrates, pulmonary edema, blunting of costophrenic angle CT interpreted by me (1pt min.). @ -None done U/S interpreted by me (1pt. min.). @ -None done What testing was considered but not performed or refused? (CT, X-rays, U/S, labs)? Why? @ -None What meds were considered but not given or refused? Why? @ -None Did you discuss the management of the patient with other professionals (professionals i.e. , PA, DAMPER MAKER, lab, RT, psych nurse, social director, last picker, teacher, classification officer, showcase trimmer)? Give summary @ -No Was smoking cessation discussed for >3mins.? @ -No Was critical care preformed (if so, how long)? @ -No Were there social determinants of health that impacted care today? How? (Homelessness, low income, unemployed, alcoholism, drug addiction, transportation, low edu. Level, literacy, decrease access to med. care, prison, rehab)? @ -No Was there de-escalation of care discussed even if they declined (Discuss DNR or withdrawal of care, Hospice)? DNR status @ -No What co-morbidities impacted this encounter? (DM, HTN, Smoking, COPD, CAD, Cancer, CVA, ARF, Chemo, Hep., AIDS, mental health diagnosis, sleep apnea, morbid obesity)? @ -None Was patient admitted / discharged? Hospital course, mention meds given and rout e, prescriptions, significant lab abnormalities, going to OR and other pertinent info. @ -Discharged. Chest x-ray revealed no abnormal findings. Patient sent home with benzonatate and Medrol Dosepak. Undiagnosed new problem with uncertain prognosis? @ -No Drug Therapy requiring intensive monitoring for toxicity (Heparin, Nitro, Insulin, Cardizem)? @ -No Were any procedures done? @ -No Diagnosis/symptom? @ -Acute bronchitis Acute, or Chronic, or Acute on Chronic? @ -Acute Uncomplicated (without systemic symptoms) or Complicated (systemic symptoms)? @ -Uncomplicated Side effects of treatment? @ -No Exacerbation, Progression, or Severe Exacerbation? @ -No Poses a threat to life or bodily function? How? (Chest pain, [place], [place], pneumonia, PE, COPD, DKA, ARF, appy, cholecystitis, CVA, Diverticulitis, Homicidal, Suicidal, threat to staff... and all critical care pts) @ -No Disposition Clinical Impression: Bronchitis Disposition: HOME SELF-CARE Condition: Good Instructions (If sedation given, give patient instructions): Acute Bronchitis (ED) Prescriptions: methylPREDNISolone Dose Pack [Medrol Dose Pack] 4 mg PO DIRECTED #1 packet Benzonatate [Tessalon Perle] 200 mg PO RT-Q8H #15 cap Is patient prescribed a controlled substance at d/c from ED?: No Referrals: None,Stated [Primary Care Provider] - 1-2 days Time of Disposition: 14:30
== END 2024-01-29 16:31 | disposition home or self-care (01) ==
LOC: EC 13:44
CPT/HCPCS: 71046; 99283

== ENCOUNTER 2024-05-15 13:54 | Emergency (ER) | payer MEDICARE, OTHER ==
--- NOTE | 2024-05-15 14:58 | ED ---
General Adult HPI - General Chief complaint: Fall Stated complaint: weakness Time Seen by Provider: 05/15/24 14:58 Source: patient, RN notes reviewed Mode of arrival: wheelchair Limitations: no limitations - History of Present Illness Initial comments: 43-year-old male with history of developmental disability and seizures presenting for frequent falls. Mother states over the past week patient has fallen multiple times. States he fell last week and he did not think much of it, however mother reports he has fallen 3 times today. Patient states when he walks he becomes lightheaded and sees green in his vision. Otherwise he cannot pinpoint why he is falling. Denies headaches, chest pain, shortness of breath, abdominal pain. Denies focal neurological deficits. Denies injuries from the fall. He follows with Dr. Calvin neurologist who recently took him off ethosuximide last week which he has been taking for seizures. He remains on many psych medications. States he has not had a seizure in many years. Endorses history of high blood pressure. Denies suicidal or homicidal ideation. - Related Data Home Medications Medication Instructions Recorded Confirmed cloZAPine [Clozaril] 150 mg PO BID@0900,1500 09/30/18 05/15/24 cloZAPine [Clozaril] 350 mg PO HS 09/30/18 05/15/24 [place] Carbonate 900 mg PO HS 12/05/18 05/15/24 Ethosuximide 750 mg PO BID 05/15/24 05/15/24 Imipramine [Tofranil] 75 mg PO HS 05/15/24 05/15/24 Lacosamide [Vimpat] 100 mg PO BID 05/15/24 05/15/24 [place] Carbonate 300 mg PO DAILY 05/15/24 05/15/24 Propranolol HCl 80 mg PO BID 05/15/24 05/15/24 cloNIDine HCL [Catapres] 0.1 mg PO BID PRN 05/15/24 05/15/24 lamoTRIgine [LaMICtal] 300 mg PO BID 05/15/24 05/15/24 Previous Rx's Medication Instructions Recorded Benztropine Mesylate [Cogentin] 1 mg PO DAILY #30 tab 09/28/18 Haloperidol Decanoate [Haldol D] 250 mg IM Q28D #1 vial 09/28/18 Allergies Allergy/AdvReac Type Severity Reaction Status Date / Time divalproex sodium Allergy Severe Unknown Verified 05/15/24 16:53 [From Depakote] chocolate flavor AdvReac Rash/Hives Verified 05/15/24 16:53 Review of Systems ROS Statement: Those systems with pertinent positive or pertinent negative responses have been documented in the HPI. ROS Other: All systems not noted in ROS Statement are negative. Past Medical History Past Medical History: Neurologic Disorder, Seizure Disorder Additional Past Medical History / Comment(s): Developemental Disability, asperbergers,delayed speech,severe emotional impairment,explosive anger disorder.schizoaffective disorder History of Any Multi-Drug Resistant Organisms: None Reported Past Surgical History: No Surgical Hx Reported Past Anesthesia/Blood Transfusion Reactions: No Reported Reaction Past Psychological History: Anxiety, Depression, Schizoaffective Disorder, Schizophrenia Smoking Status: Current every day smoker Past Alcohol Use History: None Reported Past Drug Use History: None Reported General Exam Limitations: no limitations General appearance: alert, in no apparent distress Head exam: Present: atraumatic, normocephalic, normal inspection Eye exam: Present: normal appearance, PERRL, EOMI. Absent: scleral icterus, conjunctival injection, periorbital swelling ENT exam: Present: normal exam, mucous membranes moist Neck exam: Present: normal inspection. Absent: tenderness, meningismus, lymphadenopathy Respiratory exam: Present: normal lung sounds bilaterally. Absent: respiratory distress, wheezes, rales, rhonchi, stridor Cardiovascular Exam: Present: regular rate, normal rhythm, normal heart sounds. Absent: systolic murmur, diastolic murmur, rubs, gallop, clicks GI/Abdominal exam: Present: soft, normal bowel sounds. Absent: distended, tenderness, guarding, rebound, rigid Neurological exam: Present: alert, oriented X3, CN II-XII intact, normal gait, reflexes normal. Absent: motor sensory deficit Psychiatric exam: Present: normal affect, normal mood Skin exam: Present: warm, dry, intact, normal color. Absent: rash Course Vital Signs 05/15/24 05/15/24 14:00 17:22 Temperature 98.3 F 98.1 F Pulse Rate 81 73 Respiratory 16 18 Rate Blood Pressure 104/74 124/80 O2 Sat by Pulse 97 98 Oximetry EKG Findings - EKG Results: EKG: interpreted by ERMD (EKG reveals normal sinus rhythm with no acute changes. Ventricular rate 76 bpm, GA interval 195, QRS duration 97, QT/QTc 390/421) Medical Decision Making - Medical Decision Making Was pt. sent in by a medical professional or institution (BINH Lopez, NURSE PRACTITIONER MANAGER, urgent care, hospital, or group home...) When possible be specific @ -No Did you speak to anyone other than the patient for history (EMS, parent, family, police, friend...)? What history was obtained from this source @ -I spoke with patient's mother who supplemented history Did you review nursing and triage notes (agree or disagree)? Why? @ -I reviewed and agree with nursing and triage notes Were old charts reviewed (outside hosp., previous admission, EMS record, old EKG, old radiological studies, urgent care reports/EKG's, group home records)? Report findings @ -No old charts were reviewed Differential Diagnosis (chest pain, altered mental status, abdominal pain women, abdominal pain men, vaginal bleeding, weakness, fever, dyspnea, syncope, headache, dizziness, GI bleed, back pain, seizure, CVA, palpatations, mental health, musculoskeletal)? @ -Differential Dizziness: Benign paroxysmal positional Vertigo, Meniere's disease, otitis media, acoustic neuroma, vertebrobasilar insufficiency, cerebellar stroke, encephalitis, hypov olemic, arrhythmia, coronary artery syndrome, anemia, this is not meant to be an all-inclusive list EKG interpreted by me (3pts min.). @ -As above X-rays interpreted by me (1pt min.). @ -None done CT interpreted by me (1pt min.). @ -CT brain reveals no acute intracranial abnormality U/S interpreted by me (1pt. min.). @ -None done What testing was considered but not performed or refused? (CT, X-rays, U/S, labs)? Why? @ -None What meds were considered but not given or refused? Why? @ -None Did you discuss the management of the patient with other professionals (professionals i.e. BINH Lopez, NURSE PRACTITIONER MANAGER, lab, RT, psych nurse, social media community manager, psychologist chief, teacher, state highway police officer, business case analyst)? Give summary @ -No Was smoking cessation discussed for >3mins.? @ -No Was critical care preformed (if so, how long)? @ -No Were there social determinants of health that impacted care today? How? (Homelessness, low income, unemployed, alcoholism, drug addiction, transportation, low edu. Level, literacy, decrease access to med. care, nursing home, rehab)? @ -No Was there de-escalation of care discussed even if they declined (Discuss DNR or withdrawal of care, Hospice)? DNR status @ -No What co-morbidities impacted this encounter? (DM, HTN, Smoking, COPD, CAD, Cancer, CVA, ARF, Chemo, Hep., AIDS, mental health diagnosis, sleep apnea, morbid obesity)? @ -None Was patient admitted / discharged? Hospital course, mention meds given and route, prescriptions, significant lab abnormalities, going to OR and other pertinent info. @ -Discharge. This is a 33-year-old male presenting with frequent falls for the past week. Patient is on many psychiatric medications and had a recent change to his medication last week. No acute focal deficits. Neurological examination unremarkable. Lab work largely unremarkable. CT brain reveals no acute intracranial process. [place] level 1.3. Lamictal level sent out. Discussed results with patient and mother. I believe symptoms are likely due to polypharmacy at this time due to extensive amount of psychiatric medications. Encouraged patient to follow-up with neurologist to discuss medication adjustments. Patient and mother are agreeable to plan. Case was discussed with the ED attending Dr. Capone. Undiagnosed new problem with uncertain prognosis? @ -No Drug Therapy requiring intensive monitoring for toxicity (Heparin, Nitro, Insulin, Cardizem)? @ -No Were any procedures done? @ -No Diagnosis/symptom? @ -Ataxia Acute, or Chronic, or Acute on Chronic? @ -Acute Uncomplicated (without systemic symptoms) or Complicated (systemic symptoms)? @ -Complicated Side effects of treatment? @ -No Exacerbation, Progression, or Severe Exacerbation? @ -No Poses a threat to life or bodily function? How? (Chest pain, [place], [place], pneumonia, PE, COPD, DKA, ARF, appy, cholecystitis, CVA, Diverticulitis, Homicidal, Suicidal, threat to staff... and all critical care pts) @ -Unlikely at this time - Lab Data Result diagrams: 05/15/24 15:35 05/15/24 15:35 Lab Results 05/15/24 05/15/24 05/15/24 Range/Units 15:35 15:35 15:35 WBC 10.5 (3.8-10.6) k/uL RBC 4.75 (4.30-5.90) m/uL Hgb 14.9 (13.0-17.5) gm/dL Hct 45.5 (39.0-53.0) % MCV 95.8 (80.0-100.0) fL MCH 31.4 (25.0-35.0) pg MCHC 32.7 (31.0-37.0) g/dL RDW 12.8 (11.5-15.5) % Plt Count 196 (150-450) k/uL MPV 8.6 Neutrophils % 77 % Lymphocytes % 14 % Monocytes % 7 % Eosinophils % 0 % Basophils % 0 % Neutrophils # 8.1 H (1.3-7.7) k/uL Lymphocytes # 1.5 (1.0-4.8) k/uL Monocytes # 0.7 (0-1.0) k/uL Eosinophils # 0.0 (0-0.7) k/uL Basophils # 0.0 (0-0.2) k/uL Sodium 137 (137-145) mmol/L Potassium 4.1 (3.5-5.1) mmol/L Chloride 105 (98-107) mmol/L Carbon Dioxide 24 (22-30) mmol/L Anion Gap 8 mmol/L BUN 11 (9-20) mg/dL Creatinine 1.22 (0.66-1.25) mg/dL Est GFR (CKD-EPI)AfAm 89 (>60 ml/min/1.73 sqM) Est GFR (CKD-EPI)NonAf 77 (>60 ml/min/1.73 sqM) Glucose 101 H (74-99) mg/dL Plasma Lactic Acid Noe (0.7-2.0) mmol/L Calcium 10.4 H (8.4-10.2) mg/dL Total Bilirubin 0.7 (0.2-1.3) mg/dL AST 24 (17-59) U/L ALT 23 (4-49) U/L Alkaline Phosphatase 118 (38-126) U/L Troponin I <0.012 (0.000-0.034) ng/mL Total Protein 6.4 (6.3-8.2) g/dL Albumin 4.2 (3.5-5.0) g/dL [place] mmol/L 05/15/24 05/15/24 Range/Units 15:35 18:19 WBC (3.8-10.6) k/uL RBC (4.30-5.90) m/uL Hgb (13.0-17.5) gm/dL Hct (39.0-53.0) % MCV (80.0-100.0) fL MCH (25.0-35.0) pg MCHC (31.0-37.0) g/dL RDW (11.5-15.5) % Plt Count (150-450) k/uL MPV Neutrophils % % Lymphocytes % % Monocytes % % Eosinophils % % Basophils % % Neutrophils # (1.3-7.7) k/uL Lymphocytes # (1.0-4.8) k/uL Monocytes # (0-1.0) k/uL Eosinophils # (0-0.7) k/uL Basophils # (0-0.2) k/uL Sodium (137-145) mmol/L Potassium (3.5-5.1) mmol/L Chloride (98-107) mmol/L Carbon Dioxide (22-30) mmol/L Anion Gap mmol/L BUN (9-20) mg/dL Creatinine (0.66-1.25) mg/dL Est GFR (CKD-EPI)AfAm (>60 ml/min/1.73 sqM) Est GFR (CKD-EPI)NonAf (>60 ml/min/1.73 sqM) Glucose (74-99) mg/dL Plasma Lactic Acid Noe 1.0 (0.7-2.0) mmol/L Calcium (8.4-10.2) mg/dL Total Bilirubin (0.2-1.3) mg/dL AST (17-59) U/L ALT (4-49) U/L Alkaline Phosphatase (38-126) U/L Troponin I (0.000-0.034) ng/mL Total Protein (6.3-8.2) g/dL Albumin (3.5-5.0) g/dL [place] 1.3 mmol/L Disposition Clinical Impression: Ataxia Disposition: HOME SELF-CARE Condition: Stable Additional Instructions: Follow-up with neurologist as discussed. Your lithium level today was 1.3 which is within normal range. I sent out your Lamictal level as well. Follow up as discussed for results. Please return to the Emergency Department if symptoms worsen or any other concerns. Is patient prescribed a controlled substance at d/c from ED?: No Referrals: None,Stated [Primary Care Provider] - 1-2 days Time of Disposition: 19:07
[2024-05-15 16:28] LABS: ALT 23 U/L (4-49); AST 24 U/L (17-59); African American GFR (CKD) 89 (>60 ml/min/1.73 sqM); Albumin 4.2 g/dL (3.5-5.0); Alkaline Phosphatase 118 U/L (38-126); Anion Gap 8 mmol/L; Blood Urea Nitrogen 11 mg/dL (9-20); Calcium 10.4 mg/dL (8.4-10.2); Carbon Dioxide 24 mmol/L (22-30); Chloride 105 mmol/L (98-107); Glucose 101 mg/dL (74-99); Non-African American GFR(CKD) 77 (>60 ml/min/1.73 sqM); Potassium 4.1 mmol/L (3.5-5.1); Sodium 137 mmol/L (137-145); Total Bilirubin 0.7 mg/dL (0.2-1.3); Total Protein 6.4 g/dL (6.3-8.2)
--- NOTE | 2024-05-15 16:41 | CT ---
EXAMINATION TYPE: CT brain wo con DATE OF EXAM: 05/15/2024 COMPARISON: 10/23/2015 CLINICAL INDICATION: Male, 33 years old with history of ataxia; PHH, Frequent falls (per mom) CT DLP: 1184.4 mGycm Automated exposure control for dose reduction was used. Findings: The ventricles, basal cisterns and sulci over the convexities are within normal limits and there is n o mass effect or shift of midline structures. No abnormal density is seen throughout the brain parenchyma and there is no acute intra or extra-axia l hemorrhage. The posterior fossa including the brainstem, fourth ventricle and cerebellar pontine angles appear no rmal. Intraorbital contents appear normal and symmetric. Visualized paranasal sinuses and mastoid air cells are well aerated. The calvarium is intact. IMPRESSION: No significant abnormality seen. There is no acute bleed or mass effect. [facility], Workstation: [id number] 05/15/2024 4:39 PM
[2024-05-15 16:56] LABS: Basophils % (A) 0 %; Eosinophils % (A) 0 %; HCT 45.5 % (39.0-53.0); HGB 14.9 gm/dL (13.0-17.5); Lymphocytes # (A) 1.5 k/uL (1.0-4.8); Lymphocytes % (A) 14 %; MCH 31.4 pg (25.0-35.0); MCHC 32.7 g/dL (31.0-37.0); MCV 95.8 fL (80.0-100.0); Mean Platelet Volume 8.6; Monocytes # (A) 0.7 k/uL (0-1.0); Monocytes % (A) 7 %; Neutrophils # (A) 8.1 k/uL (1.3-7.7); Neutrophils % (A) 77 %; Platelet Count 196 k/uL (150-450); RBC 4.75 m/uL (4.30-5.90); RDW 12.8 % (11.5-15.5); WBC 10.5 k/uL (3.8-10.6)
[2024-05-15 17:23] VITALS: RESP 18
[2024-05-15 19:44] VITALS: BP 132/94; PULSE 75; TEMP 98.2
== END 2024-05-15 19:35 | disposition home or self-care (01) ==
LOC: EC 13:54
DX: R27.0 Ataxia, unspecified (principal); F17.200 Nicotine dependence, unspecified, uncomplicated; Z88.8 Allergy status to other drugs, medicaments and biological substances; Z91.02 Food additives allergy status
CPT/HCPCS: 36415; 70450; 80053; 80175; 80178; 83605; 84484; 85025; 93005; 99284